=== PATIENT | female | born 1940 | race African-American/Black ===

== ENCOUNTER → 2019-05-12 14:21 | Outpatient (CLI) | payer MEDICARE, SELFPAY ==
--- NOTE | ~2019-05-12 | MR_ITS ---
EXAMINATION: MR cervical spine wo con EXAM DATE: 05/12/2019 15:09 INDICATION: Left hand numbness. Neck pain. TECHNIQUE: Multi-sequential, multiplanar MR images of the cervical spine were obtained without contra st. Axial T2, axial T2 MERGE sequence. Sagittal T1, T2, T2 fat saturation images also obtained. Th ere is no prior study for comparison. FINDINGS: There is moderate to severe disc disease from C3 through C6, moderate at C6-7. There is 2 mm anterolisthesis C7 on T1. The cervical central canal stenosis from C3 through C6, causing spinal c ord compression, with flattening of the cord at C4-5 more than C5-6, probably chronic given that ther e is no evidence of spinal cord edema. Recommend neurosurgical consult. There are no suspicious marro w signal abnormalities. Cervicomedullary junction is normal in appearance. Paraspinal soft tissue is unremarkable. Level by level evaluation: C2-C3: Disc does not extend beyond the endplate margin. Uncovertebral joint arthropathy: None. Facet joint arthropathy: Mild to moderate left, mild right. Neural foraminal stenosis: No stenosis. Central canal stenosis: No stenosis. C3-C4: There is a mild to moderate diffuse disc bulge, asymmetric to the right Uncovertebral joint arthropathy: Severe bilateral. Facet joint arthropathy: Moderate bilateral. Neural foraminal stenosis: Severe bilateral. Central canal stenosis: Mild to moderate . Central canal measures 6 mm in mid sagittal AP diameter . C4-C5: There is a moderate to large diffuse disc bulge. Uncovertebral joint arthropathy: Severe right, moderate to severe left. Facet joint arthropathy: Mild to moderate bilateral. Neural foraminal stenosis: Severe right, moderate to severe left. Central canal stenosis: Moderate to severe. Central canal measures 4 mm in mid sagittal AP diameter . C5-C6: There is a moderate diffuse disc bulge. Uncovertebral joint arthropathy: Severe right, moderate to severe left. Facet joint arthropathy: Moderate. Neural foraminal stenosis: Severe right, moderate to severe left. Central canal stenosis: Moderate. C6-C7: There is a mild diffuse disc bulge. Uncovertebral joint arthropathy: Moderate to severe bilateral. Facet joint arthropathy: Moderate bilateral. Neural foraminal stenosis: Severe left, moderate to severe right. Central canal stenosis: Mild. C7-T1: There is a minimal diffuse disc bulge. Uncovertebral joint arthropathy: Mild to moderate left, mild right. Facet joint arthropathy: Moderate bilateral. Neural foraminal stenosis: Moderate left, mild to moderate right. Central canal stenosis: No stenosis. IMPRESSION: 1. Significant mid cervical central canal, flattening without edema, chronic cord compression. Recom mend neurosurgical evaluation. 2. Multilevel severe neural foraminal stenosis. Reviewed, dictated and finalized at location A. IMPRESSION: 1. Significant mid cervical central canal, flattening without edema, chronic c ord compression. Recommend neurosurgical evaluation. 2. Multilevel severe neural foraminal stenosis.
== END ==
PROVIDERS: PCP Family Medicine; Visit Provider Psychiatry & Neurology Neurology
DX: R20.2 Paresthesia of skin (principal); M48.02 Spinal stenosis, cervical region
CPT/HCPCS: 72141

== ENCOUNTER 2019-12-31 13:12 | Outpatient (CLI) | payer MEDICARE, SELFPAY ==
--- NOTE | ~2019-12-31 | XR_ITS ---
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 The procedure including the risks, benefits, and alternatives was discussed with the pat ient. Risks discussed included bleeding and infection. The patient understood the risks and agreed to proceed. The skin overlying the left hip joint was prepped and draped in usual sterile fashion. An esthetic was administered with 1% lidocaine subcutaneously. A 22 G needle was advanced under fluoros copic guidance into the joint. Injection of 0.6 mL of Omnipaque 240 confirmed intra-articular positi on of the needle. Subsequently, injectate consisting of 7 mm a 5:2 mixture of 1% lidocaine: 10 mg/mL Kenalog for a total dosage of 20 mg Kenalog was instilled. Washout of contrast was seen confirming i ntra-articular administration. The needle was removed and the entry site was cleaned and dressed. Th ere were no immediate complications. Fluoroscopy exposure time was 0.1 minutes. The total number of i mages was 2. FINDINGS: Real-time fluoroscopy demonstrates the needle in the left hip joint. Patient's pain prior t o procedure:5/10. Patient's pain following the procedure: 0/10. Moderate left hip osteoarthritis. IMPRESSION: 1. Left hip joint injection of local anesthetic and steroid with decrease in the patient's presenting pain. Reviewed, dictated and finalized at location A. ORY WORKER IMPRESSION: 1. Left hip joint injection of local anesthetic and steroid with decrease in th e patient's presenting pain.
== END 2019-12-31 13:13 | disposition home or self-care (01) ==
PROVIDERS: PCP Family Medicine; Visit Provider Orthopaedic Surgery
DX: M16.12 Unilateral primary osteoarthritis, left hip (principal)
CPT/HCPCS: 20610; 77002; J3301; Q9966

== ENCOUNTER → 2020-02-25 15:16 | Outpatient (CLI) | payer MEDICARE, SELFPAY ==
--- NOTE | ~2020-02-25 | MM_ITS ---
EXAMINATION: MM screening [facility] BI w deniz HISTORY: Screening mammogram TECHNIQUE: Craniocaudal and mediolateral oblique 3-D tomosynthesis images were obtained and synthetic 2-D images were generated. CAD analysis was submitted and interpreted. COMPARISON: 12/15/2018, 11/20/2017, 11/10/2016 BREAST PARENCHYMAL COMPOSITION: There are scattered areas of fibroglandular density. FINDINGS: Again noted is a stable right breast mass with biopsy change. There is no evidence of suspi cious mass, calcification, or architectural distortion to suggest malignancy in either breast. There has been no suspicious interval change. IMPRESSION: 1. No mammographic evidence of malignancy. 2. Recommend routine screening mammography in one year. BI-RADS Category 2: Benign finding(s). Reviewed, dictated and finalized at location A. TTING CLERK
== END ==
PROVIDERS: PCP Family Medicine; Visit Provider Family Medicine
DX: Z12.31 Encounter for screening mammogram for malignant neoplasm of breast (principal)
CPT/HCPCS: 77063; 77067

== ENCOUNTER 2020-04-22 09:58 | Outpatient (CLI) | payer MEDICARE, SELFPAY ==
--- NOTE | ~2020-04-22 | XR_ITS ---
CORRECTED REPORT ORDER CHANGED [id number] [place] 04/23/2020 EXAMINATION: XR lg joint inject/asp w image DATE: 04/22/2020 11:00 INDICATION: Bilateral primary osteoarthritis of the left hip TECHNIQUE: A time-out was performed to verify the patient's name, date of , and procedure to be performed. The procedure including the risks, benefits, and alternatives was discussed with the patient. Risks discussed included bleeding and infection. The patient understood the risks and agreed to proceed. The skin overlying the left hip joint was prepped and draped in usual sterile fashion. Anesthetic was administered with 1% lidocaine subcutaneously. A 22 G needle was advanced under fluoroscopic guidance into the joint. Injection of 0.8 mL of Omnipaque 240 confirmed intra-articular position of the needle. Subsequently, injectate consisting of 7 mL of a 5:2 mixture of 1% lidocaine, 10 mg/mL Kenalog for a total dosage of 20 mg Kenalog was instilled. Washout of contrast was seen confirming intra-articular administration. The needle was removed and the entry site was cleaned and dressed. There were no immediate complications. Fluoroscopy exposure time was 0.1 minutes. The total number of images was 2. FINDINGS: Real-time fluoroscopy demonstrates the needle in the left hip joint. Patient's pain prior to procedure:5/10. Patient's pain following the procedure: 0/10. IMPRESSION: 1. Left hip injection of local anesthetic and steroid with decrease in the patient's presenting pain. Reviewed, dictated and finalized at location A. ITY WORKER MTDD IMPRESSION: 1. Left hip injection of local anesthetic and steroid with decrease in the dawson ent's presenting pain.
== END 2020-04-22 09:59 | disposition home or self-care (01) ==
PROVIDERS: PCP Family Medicine; Visit Provider Orthopaedic Surgery
DX: M16.12 Unilateral primary osteoarthritis, left hip (principal)
CPT/HCPCS: 20610; 77002; Q9966

== ENCOUNTER 2020-07-29 12:40 | Outpatient (CLI) | payer MEDICARE, SELFPAY ==
--- NOTE | ~2020-07-29 | XR_ITS ---
EXAMINATION: XR lg joint inject/asp w image DATE: 07/29/2020 13:26 INDICATION: Unilateral primary osteoarthritis, left hip. Left hip pain. TECHNIQUE: A time-out was performed to verify the patient's name, date of , and procedure to b e performed. The procedure including the risks, benefits, and alternatives was discussed with the pat ient. Risks discussed included bleeding and infection. The patient understood the risks and agreed to proceed. The skin overlying the left hip joint was prepped and draped in usual sterile fashion. An esthetic was administered with 1% lidocaine subcutaneously. A 22 G needle was advanced under fluoros copic guidance into the joint. Injection of 1 mL of Omnipaque 240 confirmed intra-articular position of the needle. Subsequently, injectate consisting of 5 mL 1% lidocaine and 2 mL 10 mg/mL Kenalog wa s instilled. The needle was removed and the entry site was cleaned and dressed. There were no immed iate complications. Fluoroscopy exposure time was 0.0 minutes. The total number of images was 2. FINDINGS: Real-time fluoroscopy demonstrates the needle in the left hip joint. Patient's pain prior t o procedure:5. Patient's pain following the procedure: /10. IMPRESSION: 1. Fluoroscopy guided left hip joint injection of local anesthetic and steroid. Reviewed, dictated and finalized at location A.
== END 2020-07-29 12:41 | disposition home or self-care (01) ==
PROVIDERS: PCP Family Medicine; Visit Provider Orthopaedic Surgery
DX: M16.12 Unilateral primary osteoarthritis, left hip (principal)
CPT/HCPCS: 20610; 77002; J3301; Q9966

== ENCOUNTER → 2021-04-15 14:34 | Outpatient (CLI) | payer MEDICARE, SELFPAY ==
--- NOTE | ~2021-04-15 | MM_ITS ---
EXAMINATION: MM screening [facility] BI w deniz HISTORY: Screening TECHNIQUE: Craniocaudal and mediolateral oblique 3-D tomosynthesis images were obtained and synthetic 2-D images were generated. CAD analysis was submitted and interpreted. COMPARISON: Comparison to multiple prior studies sequentially, with oldest reviewed study dated 10/16. BREAST PARENCHYMAL COMPOSITION: Breast composed of scattered areas of fibroglandular density. FINDINGS: Stable benign appearing right breast mass. There is no evidence of suspicious mass, calcifi cation, or architectural distortion to suggest malignancy in either breast. There has been no suspici ous interval change. IMPRESSION: 1. No mammographic evidence of malignancy. 2. Recommend routine screening mammography in one year. BI-RADS Category 2: Benign finding(s). Reviewed, dictated and finalized at location A. UARY OPERATIONS MANAGER
== END ==
PROVIDERS: PCP Family Medicine; Visit Provider Obstetrics & Gynecology
DX: Z12.31 Encounter for screening mammogram for malignant neoplasm of breast (principal)
CPT/HCPCS: 77063; 77067

== ENCOUNTER → 2021-09-09 13:19 | Outpatient (CLI) | payer MEDICARE, SELFPAY ==
--- NOTE | ~2021-09-09 | DEXA_ITS ---
Bone Density Report Name: NAYELI PATTERSON Age: 81 Sex: Female Ethnicity: Black Date of : 1940 Indication: postmenopausal; screening for osteoporosis; parental hip fracture; height loss; secondary osteoporosis; Referring Provider: GALILEO FRAUSTO Study: Bone densitometry was performed. Exam Date: September 09, 2021 Accession number: [id number] Bone Density: Region BMD T-score Z-score Classification AP Spine (L1, L2, L4) 1.096 0.6 2.5 Normal Femoral Neck (Right) 0.720 -1.2 0.1 Osteopenia Total Hip (Right) 0.981 0.3 1.2 Normal World Health Organization criteria for BMD impression classify patients as: Normal (T-score at or above -1.0), Osteopenia (T-score between -1.0 and -2.5), or Osteoporosis (T-score at or below -2.5). 10-year Fracture Risk(1): Major Osteoporotic Fracture 8.5% Hip Fracture 4.0% Reported Risk Factors: [place] ([place]), Neck BMD=0.720, BMI=38.4, parental fracture, secondary osteoporosis (1) FRAX(R) Version 3.08. Fracture probability calculated for an untreated patient. Fracture probability may be lower if the patient has received treatment. Previous Exams: Region Exam Age BMD T-score BMD Change BMD Change Date g/cm2 vs Baseline vs Previous AP Spine(L1, L2, L4) 09/09/2021 81 1.096 0.6 0.017 -0.017 04/12/2017 77 1.113 0.7 0.034* 0.078* 04/08/2015 75 1.035 0.0 -0.044* -0.044* 05/18/2005 65 1.079 0.4 Total Hip(Right) 09/09/2021 81 0.981 0.3 0.080 -0.003 04/12/2017 77 0.984 0.3 0.083 -0.031* 04/08/2015 75 1.016 0.6 0.115 0.074* 05/18/2005 65 0.942 0.0 0.041 0.041 05/18/2005 65 0.901 -0.3 *Denotes significance at 95% confidence level, LSC for AP Spine = 0.022 g/cm2, LSC for Total Hip = 0.027 g/cm2 Clinical Information Provided by Patient: Parent has had a hip fracture Has secondary osteoporosis Has used the following medications: Vitamin D, Calcium Patient maximum height was 63 Menopause Age: 52 Drinks caffeinated beverages Onset of menses at age 14 Number of children 1 Impression: The patient has low bone mass, based on the Right Femoral Neck T-score. The patient has an estimated ten-year risk of hip fracture of 4% and an estimated ten-year risk of major fracture of 8.5%, based on the WHO FRAX algorithm. The patient has risk factors, including: parental hip fracture. No significant bone loss was observed. Discussion: BONE
== END ==
PROVIDERS: PCP Family Medicine; Visit Provider Obstetrics & Gynecology
DX: Z13.820 Encounter for screening for osteoporosis (principal); M85.851 Other specified disorders of bone density and structure, right thigh
CPT/HCPCS: 77080

== ENCOUNTER → 2022-04-19 14:07 | Outpatient (CLI) | payer MEDICARE, SELFPAY ==
--- NOTE | ~2022-04-19 | MM_ITS ---
EXAMINATION: MM screening [facility] BI w deniz HISTORY: Screening mammogram TECHNIQUE: Craniocaudal and mediolateral oblique 3-D tomosynthesis images were obtained and synthetic 2-D images were generated. CAD analysis was submitted and interpreted. COMPARISON: April 15, 2021, February 25, 2020, December 23, 2018 bilateral screening mammogram exam inations BREAST PARENCHYMAL COMPOSITION: There are scattered areas of fibroglandular density. FINDINGS: Stable asymmetric circumscribed opacity in the lower central right breast since 12/23/2018. There is an adjacent biopsy marker; history of benign post biopsy in 2001. There is no evidence of suspicious mass, calcification, or architectural distortion to suggest malign eh in either breast. There has been no suspicious interval change. IMPRESSION: 1. No mammographic evidence of malignancy. 2. Recommend routine screening mammography in one year. BI-RADS Category 2: Benign finding(s). Reviewed, dictated and finalized at location A. OLOGIST
== END ==
PROVIDERS: PCP Family Medicine; Visit Provider Family Medicine
DX: Z12.31 Encounter for screening mammogram for malignant neoplasm of breast (principal)
CPT/HCPCS: 77063; 77067

== ENCOUNTER 2022-05-20 10:40 | Emergency (ER) | payer MEDICARE, SELFPAY ==
--- NOTE | ~2022-05-20 | CT_ITS ---
EXAMINATION: CT brain wo con INDICATION: Head injury COMPARISON: 06/23/2017 TECHNIQUE: Standard unenhanced head CT. The dose-length product (DLP) was 605.33 mGy-cm. The mA was a djusted according to patient size. Iterative reconstruction technique was employed. FINDINGS: There is no acute intraparenchymal hemorrhage. No evidence of mass lesion. No evidence of a cute infarction. There is mild periventricular and subcortical hypodensity probably related to small vessel ischemic disease. There is mild prominence of the sulci and ventricles related to cerebral atr ophy. Intracranial calcified cerebral atherosclerosis is noted. There are no extra-axial collections. There is no mass effect or midline shift. The orbits and soft tissues are unremarkable. The visualiz ed sinuses and mastoid air cells are well aerated. IMPRESSION: 1. No acute intracranial abnormality. 2. Age related findings. Reviewed, dictated and finalized at location A.
--- NOTE | ~2022-05-20 | CT_ITS ---
EXAMINATION: CT facial & cervical spine wo DATE: 05/20/2022 11:47 INDICATION: Head injury TECHNIQUE: Computed tomography (CT) of the maxillofacial region and cervical spine was performed with out intravenous contrast. The dose-length product (DLP) was 355.40 mGy-cm. Automated exposure control and iterative reconstruction technique were employed. COMPARISON: 06/23/2017 FINDINGS: MAXILLOFACIAL CT: There appears to be a nondisplaced transverse fracture in the styloid process of the right temporal b one. No additional fracture is identified. The orbits are normal. Changes in the globes are likely fr om ocular lens surgery. The paranasal sinuses are clear. CERVICAL SPINE CT: There are 2 mm of retrolisthesis of C3 on C4. The vertebral body heights are normal. There is severe loss of intervertebral disc space height throughout the cervical spine. The odontoid process is intac t. Small degenerative osteophytes project from the anterior endplates of multiple vertebral bodies. T here is multilevel moderate facet and uncovertebral joint osteoarthritis. IMPRESSION: 1. Apparent nondisplaced transverse fracture in the styloid process of the right temporal bone. 2. Moderate to severe cervical spondylosis without acute findings. Reviewed, dictated and finalized at location A. IMPRESSION: 1. Apparent nondisplaced transverse fracture in the styloid process of the righ t temporal bone. 2. Moderate to severe cervical spondylosis without acute findings.
[2022-05-20 10:43] VITALS: BP 144/80; PULSE 91; RESP 14; TEMP 36.4; O2SAT 99
--- NOTE | 2022-05-20 11:16 | ED.FALL ---
HPI - Fall General Chief Complaint: Fall Stated Complaint: fall 1 week ago with c/o facial and jaw pain Time Seen by Provider: 05/20/22 10:57 History of Present Illness HPI Narrative: 82-year-old female history of hypertension, diabetes, hypothyroidism presents to the emergency room for evaluation of injury sustained in a fall. Patient states on Sunday she was at a restaurant and was engaged in a heated conversation with an employee. Patient states that due to her increasing anger of the situation, she became weak and fell. Denies syncope. States that when she fell she struck her head on a counter. Has been experiencing pain to her forehead above her right eye and to the right side of her face. Has been taking ibuprofen with no relief of symptoms. Denies any loss of consciousness or altered mental status. Related Data Home Medications Medication Instructions Recorded Confirmed multivitamin (Daily Multi-Vitamin 1 tablet PO DAILY 01/15/19 05/12/22 tablet) omega 2-fln-eqe-fish oil 1,000 mg 1 cap PO DAILY 02/13/19 05/12/22 (120 mg-180 mg) capsule (Fish Oil) bimatoprost 0.01 % eye drops 1 drp ophthalmic (eye) DAILY 12/24/19 05/12/22 (Lumigan) ascorbic acid (vitamin C) 500 mg mg PO 06/23/21 05/12/22 capsule Allergies Allergy/AdvReac Type Severity Reaction Status Date / Time amoxicillin Allergy Unknown VISUAL Verified 05/20/22 10:42 PROBLEMS Mushroom Allergy Mild Nausea and Uncoded 05/20/22 10:42 Vomiting Review of Systems Review of Systems: CONSTITUTIONAL: Denies fever, chills, or sweats. EYES: Denies visual changes, redness, or discharge. ENT: Denies rhinorrhea, congestion, sore throat, or otalgia. CARDIOVASCULAR: Denies chest pain, palpitations, or edema. RESPIRATORY: Denies cough or dyspnea. GASTROINTESTINAL: Denies abdominal pain, nausea, vomiting, or diarrhea. GENITOURINARY: Denies dysuria or hematuria. SKIN: Denies rash or itching. MUSCULOSKELETAL: Denies back pain, joint pain, or myalgia. NEUROLOGIC: Denies headache, numbness, dizziness, or weakness. PSYCHIATRIC: Denies anxiety or depression. [facility] Past Medical History Medical History Abnormal finding on ultrasound Benign essential HTN BMI 38.0-38.9,adult Essential hypertension Glaucoma High cholesterol Hypertension Morbid (severe) obesity due to excess calories Nightmares Nocturnal leg movements Obesity SINDHU (obstructive sleep apnea) SINDHU (obstructive sleep apnea) Osteoarthritis of left hip Screening for cervical cancer Sleep disturbance Thyroid disease Vaginal atrophy Surgical History Surgical History H/O knee surgery left tka 2010, Dr. Gallegos Right tka, 2007, Dr. Gallegos History of cholecystectomy History of hip surgery History of tubal ligation S/P dilation and curettage S/P partial thyroidectomy Family History Family History Sibling Hypertension Family history of diabetes mellitus in first degree relative Diabetes mellitus Other Cerebrovascular accident Social History Social History Social History: Single Smoking status: Never smoker Second hand tobacco smoke exposure: No Alcohol intake: never Substance use: never Substance use type: does not use Lack of Transportation: No Lack of Food: Never True Current Housing: I Have Housing Concerned About Future Housing: No Difficulty Paying Gas/Electric Bills: No Difficulty Paying for Meds: No Currently Unemployed: YES Difficulty w/ Childcare or Family Care: No Living arrangements: alone Occupation/Education: retired Gender identity (if verbalized by the patient): Female Sexual Orientation (if Verbalized by the Patient): Straight or Heterosexual Spiritual care concerns: No Agree to blood products: Yes Exam N
[2022-05-20 12:06] VITALS: BP 154/71; PULSE 68
[2022-05-20 12:08] VITALS: BP 149/86; PULSE 72
[2022-05-20 12:12] VITALS: BP 131/81; PULSE 80
[2022-05-20 12:38] VITALS: BP 150/80; PULSE 73; RESP 16; O2SAT 96
== END 2022-05-20 12:39 | disposition home or self-care (01) ==
PROVIDERS: Emergency Provider Nurse Practitioner Family; PCP Family Medicine
DX: S02.19XA Other fracture of base of skull, initial encounter for closed fracture (principal); W19.XXXA Unspecified fall, initial encounter; I10 Essential (primary) hypertension; E11.9 Type 2 diabetes mellitus without complications; E03.9 Hypothyroidism, unspecified
CPT/HCPCS: 70450; 70486; 72125; 99284

== ENCOUNTER 2022-09-04 16:09 | Outpatient (CLI) | payer MEDICARE, SELFPAY ==
--- NOTE | ~2022-09-04 | XR_ITS ---
EXAMINATION: XR facial bones min 3V DATE: 09/04/2022 16:35 INDICATION: Unspecified fracture of skull, initial encounter. TECHNIQUE: 5 views of the facial bones were obtained. COMPARISON: Maxillofacial CT 05/20/2022 FINDINGS: There is mild leftward deviation of the nasal septum. There is prominent ossification of th e stylohyoid ligaments. There are surgical clips in right neck. IMPRESSION: 1. No fracture identified. 2. Prominent ossification of the stylohyoid ligaments, which may be seen with [place]un[place] syndrome. Reviewed, dictated and finalized at location E. IMPRESSION: 1. No fracture identified. 2. Prominent ossification of the stylohyoid ligaments, which may be seen with E agle syndrome.
== END 2022-09-04 16:10 | disposition home or self-care (01) ==
LOC: ANHIMG 16:12
PROVIDERS: PCP Family Medicine; Visit Provider Physician Assistant
DX: S02.91XA Unspecified fracture of skull, initial encounter for closed fracture (principal); X58.XXXA Exposure to other specified factors, initial encounter
CPT/HCPCS: 70150

== ENCOUNTER 2023-06-18 14:11 | Emergency (ER) | payer MEDICARE, SELFPAY ==
--- NOTE | ~2023-06-18 | CT_ITS ---
EXAMINATION: CT brain wo con DATE: 06/18/2023 15:47 INDICATION: numbness . TECHNIQUE: Computed tomography (CT) of the head was performed without intravenous contrast. The mA wa s adjusted according to patient size. Iterative reconstruction technique was employed. The dose-lengt h product was 529.67 mGy-cm. COMPARISON: 05/20/2022, report only. FINDINGS: No acute intracranial hemorrhage or extra-axial fluid collection. No hydrocephalus, mass, or herniation. No acute ischemic infarct. Unremarkable dural venous sinus attenuation. No acute osseous abnormality. The aerated spaces are clear. Mild atrophy and chronic white matter change. Atherosclerotic intracranial calcification. Bilateral l ens replacements. Bilateral basal ganglia calcification. IMPRESSION: No acute intracranial process. Reviewed, dictated and finalized at location K.
[2023-06-18 14:27] VITALS: BP 152/87; PULSE 76; RESP 16; TEMP 36.3; O2SAT 97
--- NOTE | 2023-06-18 15:23 | ED.GENADULT ---
HPI - General Adult General Chief complaint: Neuro Symptoms/Deficit Stated complaint: numbness in L hand Time Seen by Provider: 06/18/23 15:23 Focused HPI: Ping Espana is a 83 y/o female with reports of having numbness to her left hand that started Sunday and it hasn't improved since. She reports that since she has also felt increased fatigued. She denies any recent falls or injuries. She states that she fell about a year ago and had a skull fracture. She reports also on Sunday she felt like she had to drag her left leg a little bit, but that has since improved. GENERAL: Well-appearing, well-nourished, and in no acute distress. HEAD: Normocephalic, atraumatic. CHEST: Clear to auscultation. ?No respiratory distress. HEART: Regular rate and rhythm.? NEURO: ?Alert and oriented x3. Patient screened in triage and initial orders placed.? ?Additional care and disposition to be based upon?diagnostic testing and treatment. Related Data Home Medications Medication Instructions Recorded Confirmed multivitamin (Daily Multi-Vitamin 1 tablet PO DAILY 01/15/19 02/27/23 tablet) omega 2-srf-han-fish oil 1,000 mg 1 cap PO DAILY 02/13/19 02/27/23 (120 mg-180 mg) capsule (Fish Oil) bimatoprost 0.01 % eye drops 1 drp ophthalmic (eye) DAILY 12/24/19 02/27/23 (Lumigan) ascorbic acid (vitamin C) 500 mg mg PO 06/23/21 02/27/23 capsule mecobalamin (vitamin B12) 500 mcg mcg PO 08/28/22 02/27/23 chewable tablet Allergies Allergy/AdvReac Type Severity Reaction Status Date / Time amoxicillin Allergy Unknown VISUAL Verified 06/18/23 14:12 PROBLEMS Mushroom Allergy Mild Nausea and Uncoded 06/18/23 14:12 Vomiting PMFSH Past Medical History Medical History (Updated 06/19/23 @ 19:46 by Johanne Hodgson APRN) Abnormal finding on ultrasound Benign essential HTN BMI 38.0-38.9,adult Chronic otitis externa of both ears Clear vaginal discharge Coughing blood Essential hypertension Glaucoma Hemoptysis High cholesterol [place] (hard of hearing) Hypertension Morbid (severe) obesity due to excess calories Nightmares Nocturnal leg movements Obesity SINDHU (obstructive sleep apnea) SINDHU (obstructive sleep apnea) Osteoarthritis of left hip Recurrent epistaxis Screening for cervical cancer Screening for diabetes mellitus (DM) Skull fracture Sleep disturbance Thyroid disease Vaginal atrophy Surgical History Surgical History H/O knee surgery left tka 2010, Dr. Gallegos Right tka, 2007, Dr. Gallegos History of cholecystectomy History of hip surgery History of tubal ligation S/P dilation and curettage S/P partial thyroidectomy Family History Family History Sibling Hypertension Family history of diabetes mellitus in first degree relative Diabetes mellitus Other Cerebrovascular accident Social History Social History (Updated 02/27/23 @ 13:09 by Mehreen Desouza) Social History: Single Smoking status: Never smoker Second hand tobacco smoke exposure: No Alcohol intake: never Substance use: never Substance use type: does not use Do You Feel Safe in your Home?: Yes Lack of Transportation: No Lack of Food: Never True Current Housing: I Have Housing Concerned About Future Housing: No Difficulty Paying Gas/Electric Bills: No Difficulty Paying for Meds: No Currently Unemployed: YES Education: Master's Degree or Higher Difficulty w/ Childcare or Family Care: No Living arrangements: alone Occupation/Education: retired Gender identity (if verbalized by the patient): Female Sexual Orientation (if Verbalized by the Patient): Straight or Heterosexual Spiritual care concerns: No Agree to blood products: Yes Course Vital Signs Vital signs: Vital Signs Temperature 36.3 C L 06/18/23 14:27 Pulse Rate 76 06/18/23 14:27 Respiratory Rate 16 06/18/23 14:27 Blood Pressure 15
[2023-06-18 17:38] LABS: Basophils Percent Auto 0.3 % (0.2-1.2); Eosinophils Absolute Auto 0.1 K/mm3 (0-0.3); Eosinophils Percent Auto 1.9 % (0-4.4); Hematocrit 38.8 % (37.0-47.0); Hemoglobin 12.5 g/dL (12.0-15.0); Immature Granulocyte Absolute 0.04 K/mm3 (0.00-0.031); Immature Granulocyte Percent A 0.6 % (0-0.5); Lymphocytes Absolute Auto 1.85 K/mm3 (0.9-3.2); Lymphocytes Percent Auto 29.4 % (18.3-44.2); Mean Corpuscular HGB Conc 32.2 g/dl (32-36); Mean Corpuscular Hemoglobin 29.8 pg (26-34); Mean Corpuscular Volume 92.6 fl (80-100); Mean Platelet Volume 10.1 fl (7.4-10.4); Monocytes Absolute Auto 0.5 K/mm3 (0.1-0.6); Monocytes Percent Auto 8.1 % (2.6-8.5); Neutrophils Absolute Auto 3.8 K/mm3 (1.3-6.7); Neutrophils Percent Auto 59.7 % (45.5-73.1); Platelet Count Result 215 k/mm3 (150-375); Red Blood Count 4.19 M/mm3 (4.2-5.4); Red Cell Distribution Width 14.1 % (11.5-14.5); White Blood Count 6.3 K/mm3 (4.5-10.0)
[2023-06-18 17:49] LABS: Alanine Aminotransferase 22 U/L (6-35); Albumin Level 4.7 g/dL (3.5-5.1); Alkaline Phosphatase 94 U/L (38-126); Anion Gap 7 mmol/L (4-12); Aspartate Amino Transferase 27 U/L (14-36); Bilirubin,Total 0.5 mg/dL (0.2-1.3); Blood Urea Nitrogen 21 mg/dL (7-17); Calcium 10.6 mg/dL (8.4-10.2); Carbon Dioxide 26 mmol/L (22-30); Chloride 106 mmol/L (98-107); Estimated CRCL calculation 46 ml/min; Estimated Glomerular Filt Rate > 60; Glucose 94 mg/dL (65-110); Potassium 3.7 mmol/L (3.4-5.0); Sodium 139 mmol/L (137-145)
== END 2023-06-18 17:30 | disposition left against medical advice (07) ==
LOC: ANHED 18:39
PROVIDERS: Emergency Provider Nurse Practitioner Family; PCP Family Medicine
DX: R20.2 Paresthesia of skin (principal); I10 Essential (primary) hypertension; G47.30 Sleep apnea, unspecified
CPT/HCPCS: 36415; 70450; 80053; 85025; 99284

== ENCOUNTER 2023-10-31 15:43 | Outpatient (CLI) | payer MEDICARE, SELFPAY ==
--- NOTE | ~2023-10-31 | MM_ITS ---
EXAMINATION: MM screening trever BI w deniz HISTORY: Screening TECHNIQUE: Craniocaudal and mediolateral oblique 3-D tomosynthesis images were obtained and synthetic 2-D images were generated. CAD analysis was submitted and interpreted. COMPARISON: Comparison to multiple prior studies sequentially, with oldest reviewed study dated 11/10. BREAST PARENCHYMAL COMPOSITION: Not dense: There are scattered areas of fibroglandular density. FINDINGS: Low-density masses in the lower central aspect of the right breast is not significantly maximilian nged from prior studies. There is a new cluster of pleomorphic calcifications in the upper outer quad rant of the right breast. There are also a new calcifications in the upper outer quadrant of the left breast, middle third. IMPRESSION: 1. New clusters of indeterminate calcifications bilaterally. 2. Magnification views are recommended. BI-RADS Category 0: Incomplete: Needs additional imaging evaluation. Reviewed, dictated and finalized at location B.
== END 2023-10-31 15:44 | disposition home or self-care (01) ==
LOC: MICIMG 15:44
PROVIDERS: PCP Family Medicine; Visit Provider Obstetrics & Gynecology
DX: Z12.31 Encounter for screening mammogram for malignant neoplasm of breast (principal); R92.8 Other abnormal and inconclusive findings on diagnostic imaging of breast
CPT/HCPCS: 77063; 77067

== ENCOUNTER 2023-11-21 09:16 | Outpatient (CLI) | payer MEDICARE, SELFPAY ==
--- NOTE | ~2023-11-21 | MMUS_ITS ---
EXAMINATION: MM diagnostic mammo BI, US breast RT limited HISTORY: Follow-up bilateral breast calcifications TECHNIQUE: Additional 3-D tomosynthesis images of the breasts were performed and synthetic 2-D images were generated. CAD analysis was submitted and interpreted. High resolution Limited right breast ult rasound was performed. COMPARISON: Comparison to multiple prior studies sequentially, with oldest reviewed study dated 11/20. BREAST PARENCHYMAL COMPOSITION: Not dense: There are scattered areas of fibroglandular density. FINDINGS: MAMMOGRAPHIC FINDINGS: There is a focal mass in the lower central aspect of the right breast, middle third with adjacent tis mary ellen marker. The mass contains areas of central lucency, likely fat. There are clustered indeterminate calcifications in the upper outer quadrant of the right breast, posterior third with some areas of b ranching calcifications. There is a cluster of indeterminate calcifications developing in the upper o uter quadrant of the left breast, posterior third. ULTRASOUND: Limited right breast ultrasound: In the area of mammographic abnormality there is an oval hyperechoic 2.3 cm mass with posterior shadowing. This likely represents an area of fat necrosis from prior biop sy. Short-term follow-up ultrasound recommended. IMPRESSION: 1. Clustered indeterminate bilateral breast calcifications in the upper outer quadrant of both breast s. Bilateral stereotactic biopsy recommended. 2. Probable benign area of fat necrosis in the 7:00 position of the right breast, 4 cm from the nippl e. Six-month follow-up ultrasound recommended. BI-RADS category 4, suspicious findings. Reviewed, dictated and finalized at location B. IMPRESSION: 1. Clustered indeterminate bilateral breast calcifications in the upper outer q uadrant of both breasts. Bilateral stereotactic biopsy recommended. 2. Probable benign area of fat necrosis in the 7:00 position of the right breas t, 4 cm from the nipple. Six-month follow-up ultrasound recommended. BI-RADS category 4, suspicious findings.
== END 2023-11-21 09:17 | disposition home or self-care (01) ==
LOC: MICIMG 09:17
PROVIDERS: PCP Family Medicine; Visit Provider Obstetrics & Gynecology
DX: R92.8 Other abnormal and inconclusive findings on diagnostic imaging of breast (principal)
CPT/HCPCS: 76642; 77066

== ENCOUNTER 2024-01-02 14:58 | Outpatient (CLI) | payer MEDICARE, SELFPAY ==
--- NOTE | ~2024-01-02 | XR_ITS ---
HISTORY: M25.519 - Pain in unspecified shoulder COMPARISON: None TECHNIQUE: 4 views of the left shoulder were performed. FINDINGS: No acute fracture. The glenohumeral joint space is maintained. Multiple osteophytes identified within the acromioclavicular joint. The visualized portion of the adjacent left lung is clear. The humeral head is well seated within the glenoid fossa. 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 Reviewed, dictated and finalized at location A. 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
--- NOTE | ~2024-01-02 | XR_ITS ---
HISTORY: M25.519 - Pain in unspecified shoulder COMPARISON: None TECHNIQUE: 4 views of the right shoulder were performed FINDINGS: No acute fracture. Degenerative disease is present, with osteophyte formation within the acromioclavicular joint, most p rominent within the acromion. Joint space narrowing is also detected within the glenohumeral joint space. The glenohumeral and acromioclavicular joint space are otherwise maintained The visualized portion of the adjacent right lung is clear. The humeral head is well seated within the glenoid fossa. IMPRESSION: Degenerative disease without acute fracture or anterior dislocation. Reviewed, dictated and finalized at location A. SIFIER
== END 2024-01-02 14:59 | disposition home or self-care (01) ==
PROVIDERS: PCP Family Medicine; Visit Provider Student in an Organized Health Care Education/Training Program
DX: M19.012 Primary osteoarthritis, left shoulder (principal); M19.021 Primary osteoarthritis, right elbow; M25.519 Pain in unspecified shoulder
CPT/HCPCS: 73030

== ENCOUNTER 2024-01-03 09:16 | Outpatient (CLI) | payer MEDICARE, SELFPAY ==
--- NOTE | ~2024-01-03 | MM_ITS ---
MM stereotactic bx LT, MM stereotactic specimen LT EXAMINATION: MM stereotactic bx LT, MM stereotactic specimen LT DATE: Josesito Mckay M.D. INDICATION: Abnormal calcifications in the left breast. Stereotactic core biopsy is requested evalua te for malignancy.] BREAST PARENCHYMAL COMPOSITION: TECHNIQUE AND FINDINGS: The risks and potential benefits of the procedure were discussed with the patient and written informe d consent was obtained. The patient was placed in the prone position clustered at the table with the left breast in lateral medial compression, and the area of interest was localized and targeted utili zing digital imaging with stereotaxis. After sterile preparation of the skin, 1% lidocaine was utilized for local anesthesia at the skin pun cture site and 1% lidocaine with epinephrine was utilized for deeper local anesthesia/is about the bi opsy site. A 9G Eviva vacuum assisted biopsy needle was advanced to the level of the calcification o f interest from a lateral approach utilizing stereotactic guidance and a total of 6 tissue core biops ies were obtained. A specimen radiograph demonstrates that the calcifications of interest are included within the tissue cores. A tissue marker clip was then placed at the biopsy site. The needle was removed and hemosta sis was achieved. The patient tolerated the procedure well and there is no evidence of significant i mmediate complication. The patient was given verbal as well as written postprocedural instructions p rior to discharge from the department. Tissue cores were submitted to surgical pathology for histolo gic analysis. A 2-view left unilateral digital mammogram was obtained post procedure and this demonstrates that the tissue marker clip is in expected position.] IMPRESSION: 1. Successful stereotactic biopsy of calcifications in the upper outer quadrant of the left breast w ith post procedure mammogram for marker placement. Please refer to pathology report for histologic a nalysis. Reviewed, dictated and finalized at location B. ASS OPERATOR IMPRESSION: 1. Successful stereotactic biopsy of calcifications in the upper outer quadran t of the left breast with post procedure mammogram for marker placement. Pleas e refer to pathology report for histologic analysis. IMPRESSION: 1. Successful stereotactic biopsy of calcifications in the upper outer quadran t of the left breast with post procedure mammogram for marker placement. Tucker eckert refer to pathology report for histologic analysis.
--- NOTE | ~2024-01-03 | MM_ITS ---
MM stereotactic specimen RT, MM post biopsy invasive BI, MM stereotactic bx RT EXAMINATION: MM stereotactic specimen RT, MM post biopsy invasive BI, MM stereotactic bx RT DATE: Josesito Mckay M.D. INDICATION: Abnormal calcifications in the right breast. Stereotactic core biopsy is requested evalu ate for malignancy.] BREAST PARENCHYMAL COMPOSITION: Not dense: There are scattered areas of fibroglandular density. TECHNIQUE AND FINDINGS: The risks and potential benefits of the procedure were discussed with the patient and written informe d consent was obtained. The patient was placed in the prone position clustered at the table with the right breast in lateral compression, and the area of interest was localized and targeted utilizing d igital imaging with stereotaxis. After sterile preparation of the skin, 1% lidocaine was utilized for local anesthesia at the skin pun cture site and 1% lidocaine with epinephrine was utilized for deeper local anesthesia/is about the bi opsy site. A 9G Eviva vacuum assisted biopsy needle was advanced to the level of the calcification o f interest from a lateral approach utilizing stereotactic guidance and a total of 6 tissue core biops ies were obtained. A specimen radiograph demonstrates that the calcifications of interest are included within the tissue cores. A tissue marker clip was then placed at the biopsy site. The needle was removed and hemosta sis was achieved. The patient tolerated the procedure well and there is no evidence of significant i mmediate complication. The patient was given verbal as well as written postprocedural instructions p rior to discharge from the department. Tissue cores were submitted to surgical pathology for histolo gic analysis. A 2-view right unilateral digital mammogram was obtained post procedure and this demonstrates that th e tissue marker clip is in expected position.] IMPRESSION: 1. Successful stereotactic biopsy of calcifications in the upper outer quadrant of the right breast with post procedure mammogram for marker placement. Please refer to pathology report for histologic analysis. Reviewed, dictated and finalized at location B. 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 Successful stereotactic biopsy of calcifications in the upper outer quadran t of the right breast with post procedure mammogram for marker placement. Plea se refer to pathology report for histologic analysis. IMPRESSION: 1. Successful stereotactic biopsy of calcifications in the upper outer quadran t of the right breast with post procedure mammogram for marker placement. Plea se refer to pathology report for histologic analysis.
== END 2024-01-03 09:17 | disposition home or self-care (01) ==
PROVIDERS: PCP Family Medicine; Visit Provider Surgery
DX: C50.411 Malignant neoplasm of upper-outer quadrant of right female breast (principal); C50.412 Malignant neoplasm of upper-outer quadrant of left female breast; R92.0 Mammographic microcalcification found on diagnostic imaging of breast
CPT/HCPCS: 19081; 88305; 88342; A4648

== ENCOUNTER 2024-03-24 08:45 | Outpatient (CLI) | payer MEDICARE, SELFPAY ==
--- NOTE | ~2024-03-24 | MM_ITS ---
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 TECHNIQUE: The procedure for a mammographic-guided Magseed localization was discussed with the patien evonne. Risks discussed included bleeding, infection and nontargeted localization. The patient verbalized understanding and agreed to proceed. The time out was performed to verify the patient's name, date of , and laterality of the procedu res. The skin overlying the left breast was prepared in usual sterile fashion. Utilizing an alphanumeric g rid technique for localization, the magseed introducer was advanced into the left breast, targeting t he RIBBON clip. Confirmation of Magseed position was achieved with orthogonal view and subsequent med iolateral and craniocaudal mammogram. The patient tolerated procedure without immediate complication. A sterile dressing was applied Attention was then turned to the right side. The skin overlying the right breast was prepared in usual fashion. Utilizing an alphanumeric grid chelle hnique for localization, the needle was advanced into the right breast, targeting the pre-existing AN CHOR tissue marker. Confirmation of Magseed position was achieved with orthogonal view and subsequent mediolateral and craniocaudal mammogram. The patient tolerated procedure without immediate complicat ion. A sterile dressing was applied. Of note, two separate types of tissue markers are identified within the right breast. The first is an ANCHOR tissue marker, located immediately adjacent to a 19 mm focus of increased dens ity, presumed to be a hematoma from prior biopsy. The second is a BUTTERFLY tissue marker, located in the far posterior, upper outer, right breast, krupa roximately 5 to 6 mm remote from a cluster of microcalcifications, and within a 12 mm reniform shaped focus of increased density, (mistakenly) presumed to be an intramammary lymph node versus a small fi broadenoma. The ANCHOR tissue marker was localized, rather than the BUTTERFLY tissue marker (biopsy-proven atypic al ductal hyperplasia and DCIS) for which lumpectomy is planned. Given this finding, wire localization of the cluster of microcalcifications remote from the BUTTERFLY marker is planned the morning of patient's surgery. BREAST PARENCHYMAL COMPOSITION: Not dense: The breasts demonstrate a scattered fibroglandular pattern . IMPRESSION: Technically successful ultrasound-guided left breast Magseed localization. Post procedure mammogram for marker placement. Failed right breast magseed localization, for which wire localization of the cluster of microcalcific ations remote from the BUTTERFLY marker is planned the morning of patient's surgery. These findings and recommendations were discussed with Dr. Aj at 1730 on 03/26/2024. Reviewed, dictated and finalized at location A. 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 Post procedure mammogram for marker placement. Failed right breast magseed localization, for which wire localization of the cl uster of microcalcifications remote from the BUTTERFLY marker is planned the mo rning of patient's surgery. These findings and recommendations were discussed with Dr. Aj at 1730 on .
== END 2024-03-24 08:46 | disposition home or self-care (01) ==
PROVIDERS: PCP Family Medicine; Visit Provider Surgery
DX: D05.10 Intraductal carcinoma in situ of unspecified breast (principal); N60.92 Unspecified benign mammary dysplasia of left breast
CPT/HCPCS: 19281; A4648

== ENCOUNTER 2024-03-25 11:25 | Outpatient (CLI) | payer MEDICARE, SELFPAY ==
--- NOTE | 2024-03-25 11:50 | ECG_ITS ---
Test Date: 2024-03-25 12:06:07 Measurements Intervals Byron Rate: 64 P: 45 MI: 158 QRS: -6 QRSD: 90 T: 58 QT: 372 QTc: 385 Interpretive Statements SINUS RHYTHM BASELINE ARTIFACT LIMITS INTERPRETATION No previous ECG available for comparison Electronically Signed On 03-25-2024 16:30:48 CARE MANAGEMENT ASSISTANT by Enrike Navarrete M.D.
--- OUTSIDE RECORDS SUMMARY | 2024-03-25 12:44 | XMS_ITS | CONTINUITY OF CARE DOCUMENT ---
Author Name soham jackybarb Address Unknown Organization [facility] Address [address] [facility] [address] [place] [address] Phone [phone] Care Team Providers Care Diaper Folder Name Role Phone Minh LINARES, Sony Unavailable SUSY DAVALOS Unavailable [phone] JOAN LINARES, GIANFRANCO Unavailable PROBLEMS Condition Status Date Provider Notes OBESITY active Sony Wilkinson MD [id number] DR SULLIVAN active 8 Sony Wilkinson MD HTN-09/04 ECHO NL EF 60 active ? Troy Larsen RN CVA active Sony Wilkinson MD ENCOUNTERS Date Type Provider Location Encounter Diagnosis - In-person encounter Office Visit Sony Wilkinson MD [place] [facility] - In-person encounter Office Visit Sony Wilkinson MD [place] [facility] HYPERCHOLESTEROLEM IA0PER DR SULLIVAN - In-person encounter Office Visit Sony Wilkinson MD [place] [facility] - In-person encounter Office Visit Sony Wilkinson MD [place] [facility] CVAHTN-09/04 ECHO NL EF 60HYPERCHOLESTEROL [id number] DR SULLIVANOBESITY VITAL SIGNS Date Observation Value Provider blood pressure, diastolic 72 mm[Hg] Rhoda seph [place] blood pressure, systolic 126 mm[Hg] Durga eph [facility] pulse rate 71 /min [facility] oxygen saturation, oximetry 99 % [facility] respiratory rate E&M 16 /min [facility] weight E&M 189 [lb_av] [facility] blood pressure, diastolic, left arm 78 mm [Hg] [facility] blood pressure, systolic, left arm 118 mm [Hg] [facility] blood pressure, diastolic, right arm 80 m m[Hg] [facility] blood pressure, systolic, right arm 121 m m[Hg] [facility] blood pressure, diastolic 80 mm[Hg] Candelaria [place] blood pressure, systolic 121 mm[Hg] [facility] pulse rate 81 /min [facility] oxygen saturation, oximetry 93 % [facility] respiratory rate E&M 16 /min [facility] weight E&M 208 [lb_av] [facility] pressure, diastolic 79 mm[Hg] Da daylin [place] blood pressure, systolic 134 mm[Hg] Terry [place] pulse rate 73 /min Dora [place] oxygen saturation, oximetry 100 % Dora [place] respiratory rate E&M 16 /min Laci [place] weight E&M 204 [lb_av] Dora [place] blood pressure, dumont tolic, second observation 68 mm[Hg] Gloria Gonzalez blood pressure, systolic, second observat ion 130 mm[Hg] Gloria Gonzalez blood pressure, diastolic 68 mm[Hg] Ca jaja Gonzalez blood pressure, systolic 130 mm[Hg] Cody Gonzalez pulse rate 85 /min Gloria Gonzalez oxygen saturation, oximetry 99 % Gloria Gonzalez respiratory rate E&M 16 /min Gloria hernandez weight E&M 200.5 [lb_av] Gloria Bull moi ALLERGIES Allergy Name Onset Date Reaction Criticality Status AMOXICILLIN High Criticality active HISTORY OF MEDICATION USE Medication Status Instructions Dates Provider Indications Com ments ALEVE TABLET active as needed Harpreet Terry LUMIGAN SOLUTION active 1 drop into each eye at bedtime Harpreet Terry FOSAMAX 35 MG TABS active 1 tablet by mouth once per week Harpreet Terry EQL ALEJANDRA-C ORAL TABLET active daily Troy Larsen RN BEE POLLEN 500 MG TABS active 1 tab daily D enlawrence Salcedo CENTRUM SILVER ORAL TABLET active 1 tab daily Renetta Salcedo OMEGA-3 FISH OIL 1200 MG ORAL CAPSULE active 1 tag daily Denlawrence Salcedo CLEOCIN 150 MG ORAL CAPSULE completed 1 cap every 6hrs - Harpreet Terry ACETAMINOPHEN-CODEINE #3 300-30 MG ORAL TABLET completed 1 to2 tabs every 4 to 6 hrs as needed for pain - Harpreet Terry ASPIRIN 81 MG ORAL TABLET active ONE TAB. DAILY Sony Wilkinson MD CELEBREX 100 MG ORAL CAPSULE completed 2 capsules by mouth daily - Harpreet Terry KLOR-CON M20 active 1 tablet by mouth daily Harpreet Terry VYTORIN 10-40 MG ORAL TABLET active 1 tablet by mouth daily Harpreet Terry HYDROCHLOROTHIAZIDE 12.5 MG ORAL TABLET active 1 tablet by mouth daily Harpreet Terry SOCIAL HISTORY Date Observation Value Provider social history reviewed E&M reviewed Sony Wilkinson MD social history reviewed E&M reviewed Troy Larsen RN social history reviewed E&M reviewed Sony Wilkinson MD social history E&M Marital Statu s: Single L denia alone E thnicity: Sony Wilkinson MD smoking status Non-Smoker Sony Wilkinson MD social history reviewed E&M reviewed Sony Wilkinson MD physical exercise, f requency, days per week yes [employer] caffeine use, averag e drinks per day yes [employer] alcohol use, average drinks per day none [employer] number of years as a smoker 10 years or m ore [facility] MENTAL STATUS Date Observation Value Provider assessment of judgme nt and insight E&M Alert and oriented to time, place and person. Mood and affect are normal. Sony Wilkinson MD assessment of judgme nt and insight E&M Alert and oriented to time, place and person. Mood and affect are normal. Troy Larsen RN assessment of judgme nt and insight E&M Alert and oriented to time, place and person. Mood and affect are normal. Sony Wilkinson MD assessment of judgme nt and insight E&M Alert and oriented to time, place and person. Mood and affect are normal. Sony Wilkinson MD INSURANCE PROVIDERS Payer name Policy type / Coverage type [place] [employer] insurance [employer] [id number] [place] Medicare [id number] TREATMENT PLAN Date Name Performer Yearly Follow-up: H er updated medication list for this problem includes: Aspirin 81 Mg Tabs (Aspirin) ..... One tab. daily Sony Wilkinson MD Yearly Follow-up:she has not been on any meds for htn and her bp is 126/72 and H er updated medication list for this problem includes: Hydrochlorothiazide 12.5 Mg Tabs (Hydrochlorothiazide) ..... 1 tablet by mouth daily Aspirin 81 Mg Tabs (Aspirin) ..... One tab. daily Orders: E KG ([id number]) Sony Wilkinson MD Yearly Follow-up: H er updated medication list for this problem includes: Vytorin 10-40 Mg Tabs (Ezetimibe-simvastatin) ..... 1 tablet by mouth daily Sony Wilkinson MD Yearly Follow-up Sony Wilkinson MD 6mo, follow up: H er updated medication list for this problem includes: Aspirin 81 Mg Tabs (Aspirin) ..... One tab. daily Carotid Duplex Scan: N ormal GC (09/02/2009) Echocardiogram: N ormal left ventricular systolic function. Normal left ventricular size. Normal left ventricular wall thickness. There is E to A wave reversal consistent with impaired LV relaxation . Normal E/E` 10.0. Left ventricular ejection fraction is estimated at 60%. Normal pericardium with no significant pericardial effusion. Normal aortic root. No significant valvular abnormalities. GC (09/23/2009) Sony Wilkinson MD 6mo, follow up:excel lent H er updated medication list for this problem includes: Hydrochlorothiazide 12.5 Mg Tabs (Hydrochlorothiazide) ..... 1 tablet by mouth daily Aspirin 81 Mg Tabs (Aspirin) ..... One tab. daily BP today: 121/80 P rior BP: 134/79 (09/23/2009) Sony Wilkinson MD 6mo, follow up: H er updated medication list for this problem includes: Vytorin 10-40 Mg Tabs (Ezetimibe-simvastatin) ..... 1 tablet by mouth daily BP today: 121/80 Prior BP: 134/79 (09/23/2009) Sony Wilkinson MD 6mo, follow up Sony Wilkinson MD Sony Wilkinson MD :134/79 H er updated medication list for this problem includes: Hydrochlorothiazide 12.5 Mg Tabs (Hydrochlorothiazide) ..... 1 tablet by mouth daily Sony Wilkinson MD : H er updated medication list for this problem includes: Vytorin 10-40 Mg Tabs (Ezetimibe-simvastatin) ..... 1 tablet by mouth daily P lease adjust cholesterol medication to keep LDL less than 70 and HDL greater than 50 Sony Wilkinson MD Sony Wilkinson MD multiple complaints: 130/68 H er updated medication list for this problem includes: Hydrochlorothiazide 12.5 Mg Tabs (Hydrochlorothiazide) ..... 1 tablet by mouth daily Sony Wilkinson MD multiple complaints: check an echo o therwise the carotid just had mild plaque. Sony Wilkinson MD Date Name Complete Echo Complete Echo HISTORY OF PROCEDURES Procedure Date Procedure Name Provider Procedure Notes S tatus EKG Sony Wilkinson MD completed
--- OUTSIDE RECORDS SUMMARY | 2024-03-25 12:44 | XMS_ITS | Continuity of Care Document ---
Author Organization [employer] [facility] Address [address] [place] [address] Phone Care Team Providers Care Power Electronics Engineer Name Role Phone Doreen Banuelos MD Unavailable Unavailabl e Advance Directives Directive Yes / No Effective Date File Name No Information Encounters Encounter Description Practice Location Reason(s) For Visit Diagnoses Date Provider Providers Copied on Encounter [employer], [address], [place], [place], [address] , [place] tel: [phone] Gaby No Information [address] [place], [place], [id number]. tel:[phone] [employer], [address], [place], [place], [address] , [place] tel: [phone] [place] GYNECOLOGIC EXAMINATIONSCREEN MAL NEOP-CERVIXGENERAL OSTEOARTHROSISDVRTC LO COLON W/O HMRHGOTHER ATOPIC DERMATITISROUTINE MEDICAL EXAMSCREEN MAL NEOP-RECTUMACUTE GASTRTIS W/O HMRHG 3 Banuel[address]en[address] [place], [place], [id number]. tel:[phone] [employer], [address], [place], [place], [address] , [place] tel: [phone] Gaby VACCINATION FOR GY-PLVTVELMIHB-XHSZ ONSEARCY [facility]ITAL[facility] EXAM-GROUP SURVEY 3 Banuelos Doreen. [address] [place], [place], [address]. tel:[phone] [employer], [address], [place], [place], [address] , tel: [phone] Gaby SYMPT FEM CLIMACT STATEHORMONE REPLACE POSTMENO [address] Banuel[address] [place], [place], [address]. tel:[phone] [employer], [address], [place], [place], [address] , tel: [phone] Gaby OSTEOPOROSIS NOSSCREEN MAL NEOP OTH SITE 0200 2 Banuelos [address]en[address] [place], [place], [address]. tel:[phone] [employer], [address], [place], [place], [address] , tel: [phone] Gaby OTITIS MEDIA NOSACUTE URI NOS [address] [employer] [place] [address], [address], . [employer], [address], [place], [place], [address] , tel: [phone] Gaby GLAUCOMA NOSBUNIONPREOP CARDIOVSCLR EXAM 4 1 Banuelos [address]oreen. [address] [place], [place], [id number]. tel:[phone] Family History Family Member Type Diagnosis Age At Onset No Information Immunizations Vaccine Date Status Comments [id number] - TD administered Source: Source Unspecified Payers Payer name Insurance type Covered alliance party ID Authoriza tion(s) No Information Social History Type Description Quantity Date Captured Comments Sex Female Smoking Status No Information Chief Complaint And Reason For Visit No Information Reason For Referral Reason For Referral No Information History Of Present Illness Encounter Date Complaint History Of Prese nt Illness No Information Functional Status Date Functional Assessmen t No Information Instructions Date Instruction Additional Infor mation No Information Assessments Type Assessment Date No Information Patient Care Teams Name Effective Dates (start - stop) Status Members No Information
--- OUTSIDE RECORDS SUMMARY | 2024-03-25 12:44 | XMS_ITS | Clinical Summary ---
Author Organization [facility] Address [address] [place] [address] [place] [address] Care Team Providers Care Real Estate Broker Associate Name Role Phone Unavailable Primary Care Provider Unavailabl e Allergies Active Allergy Reactions Criticality Noted Date Comments Amoxicillin Other (See Comments) High 12/13/2021 BLINDNESS Medications amLODIPine (NORVASC) 5 mg tablet Take 5 mg by mouth late in the day. 4 Active Lumigan 0.01 % solution Administer 1 Drop in both eyes. Active triamterene-hyd roCHLOROthiazid e (MAXZIDE 25) 37.5-25 mg tablet Take 1 Tablet by mouth daily in the morning. 4 Active gabapentin (NEURONTIN) 100 mg capsule Take 100 mg by mouth. Active Active Problems No known active problems Encounters Date Type Department Care Team Description 03/20/2024 External Device Data ST[facility] ABSTRACTION Provider, Abstract 03/11/2024 Chart Note [facility] Emergency Department - [address] [id number] Murtaza Rouse MD 01/29/2024 External Device Data ST[facility] ABSTRACTION Provider, Abstract 01/28/2024 1:30 PM SYSTEMS MANAGER Office Visit [facility] Oncology and Hematology - [address] [place] [address] Octavio Wilkerson MD Ductal carcinoma in situ (DCIS) of breast, unspecified laterality (Primary Dx) from Last 3 Months Immunizations Immunization Administration Dates Next Due INFLUENZA VACCINE HIGH DOSE QUADRIVALENT 65 YR U P PF IM 12/13/2021 Family History Medical History Relation Name Comments No Known Problems Child Heart Disease Father Cancer - Other Mother Tongue Cancer Mother Cancer Sister 1 Diabetes Sister 1 Heart Disease Sister 1 Cancer Sister 2 Diabetes Sister 2 Relation Name Status Comments Child Alive Father Mother Sister 1 Sister 2 Social History Tobacco Use Types Packs/Day Years Used Date Smoking Tobacco: Former Cigarettes 0.2 2 Q uit: 01/28/1984 Smokeless Tobacco: Never Alcohol Use Standard Drinks/Week Comments Yes 0 (1 standard drink = 0.6 oz pur e alcohol) occasionally Comments Unknown Sex and Gender Information Value Date Recorded Sex Assigned at Not on file Legal Sex Female 3:26 PM CDT Gender Identity Not on file Sexual Orientation Not on file Last Filed Vital Signs Vital Sign Reading Time Taken Comments Blood Pressure 124/67 01/28/2024 1:32 PM SYSTEMS MANAGER Pulse 71 01/28/2024 1:32 PM SYSTEMS MANAGER Temperature 36.4 ??C (97.5 ??F) 01/28/2024 1:32 PM CS T Respiratory Rate 16 01/28/2024 1:32 PM SYSTEMS MANAGER Oxygen Saturation 96% 01/28/2024 1:32 PM SYSTEMS MANAGER Inhaled Oxygen Concentration - - Weight 89.8 kg (198 lb) 01/28/2024 1:32 PM SYSTEMS MANAGER Height 154.9 cm (5' 1 ) 01/28/2024 1:32 PM SYSTEMS MANAGER Body Mass Index 37.41 01/28/2024 1:32 PM SYSTEMS MANAGER Plan of Treatment Health Maintenance Due Date Last Done Comments DIABETES ANNUAL FOOT EXAM 01/05/1960 DIABETES ANNUAL RETINAL EXAM 01/05/1960 DIABETES HBA1C Q 6 MONTHS 01/05/1960 DIABETES MICROALBUMIN ANNUAL SCREEN 01/05/1960 LDL CHOLESTEROL ANNUAL 01/05/1960 DTAP/TDAP/TD VACCINES (1 - Tdap) 1961 PNEUMOCOCCAL VACCINE 65+ YEA RS (1 of 2 - PCV) 1961 ZOSTER VACCINE (1 of 2) 01/05/1992 OSTEOPOROSIS SCREENING 2007 RSV VACCINE (60+ or ) (1 - 1-dose 75+ series) 2017 INFLUENZA VACCINE (#1) 2023 2, 10/29/2019, 12/19/2018, Additional history exists [place] ([place]) Preventative Visit/Annual Wellness Visit 02/27/2024 Insurance RX OPTUM RX Member Subscriber Plan / Payer (Ef fective 2021-Present) Name:Ping Espana Relation to Subscriber:Self Name:Ping Espana Subscriber ID:Not on file Payer ID:Not on file Group ID:[id number] Type:RX Medicare Part D Address: DRALENE BAZAN AETNA PPO MCR
[2024-03-25 13:17] LABS: Anion Gap 11 mmol/L (4-12); Blood Urea Nitrogen 20 mg/dL (7-17); Calcium 9.4 mg/dL (8.4-10.2); Carbon Dioxide 26 mmol/L (22-30); Chloride 103 mmol/L (98-107); Estimated Glomerular Filt Rate 55; Glucose 92 mg/dL (65-110); Potassium 4.3 mmol/L (3.4-5.0); Sodium 140 mmol/L (137-145)
== END 2024-03-25 11:26 | disposition home or self-care (01) ==
PROVIDERS: Anesthesiology; Visit Provider Surgery
DX: Z01.818 Encounter for other preprocedural examination (principal); I10 Essential (primary) hypertension
CPT/HCPCS: 36415; 80048; 93005

== ENCOUNTER 2024-04-02 01:28 | Day surgery (SDC) | payer MEDICARE, SELFPAY ==
--- NOTE | 2024-03-21 15:10 | PC.NURSE ---
Report to the Outpatient Waiting Room, entrance under the green pavilion located off [facility], at time _6am on date __04/02/24 . Planned Procedure Time: _7:30 am .? Time changes happen often and if your time is changed the preop area will call you the afternoon before. - You and your visitor will be asked to self-screen and do not enter if you have any COVID symptoms. Please call surgeon if you need to reschedule. - A mask is optional within the hospital at this time. Patients may have clear liquids (water, carbonated beverages, clear teas, apple juice) until 3 hours prior to surgery( 4:30 am) with a maximum of 20 ounces. - No food from midnight until time of surgery and no smoking. This includes no chewing gum, candy or mints. Take only the following medications with a SIP of water on the morning of surgery: ___gabapentin DO NOT STOP ANY OF YOUR OTHER PRESCRIPTION MEDICATIONS PRIOR TO SURGERY EXCEPT THE FOLLOWING Medications to discontinue per physician none Please no make-up, nail syrian, hairspray, perfume, deodorant, or body powder the day of surgery.? No jewelry (including any body piercings) or valuables the day of surgery, leave them at home.? Please take a shower or bath the night before, or the morning of, surgery with an antibacterial soap.? Wear comfortable, loose fitting clothing.? Children are encouraged to wear pajamas. - Jewelry must be removed prior to entering the operating room.? Rings and piercings that are not removed may be cut off. - The hospital will not accept responsibility for valuables.? - Please leave all valuables, including medications, at home the day of surgery. If you are going home after surgery, a licensed driver/sales workers must drive you home.? - NO public transportation without another adult if you receive anesthesia. - We recommend that an adult stay with you for 24 hours following discharge. - We also recommend that you do not drive, make important decision, drink alcoholic beverages, or take any drugs that were not prescribed by your health care provider for at least 24 hours after your discharge time. For Pediatric surgeries, we recommend two adults accompany the child home. Hold all vitamins and supplements for _3 days per _anesthesia last dose 03/29/24 . Follow any additional instructions given to you from your surgeon. Telephone instructions given to __patient and asked if any additional questions and then verbalized understanding. Patient advised to call surgeon office or pre surgery nurse liaison [phone] if any additional questions.
[2024-03-21 15:35] VITALS: BMI 36.6
[2024-04-02] VITALS (7 sets, daily range): BP systolic 101–181; BP diastolic 65–95; PULSE 66–79; RESP 13–16; TEMP 36.2–36.3; O2SAT 100; BMI 37.4
--- NOTE | ~2024-04-02 | MM_ITS ---
MM_FAXITRON_MG 04/02/2024 12:24 Indication: Breast surgery Procedure: Faxitron image of the left breast specimen Comparison: 03/24/2024 Findings: The specimen image demonstrates a magseed device and tissue marker. Please refer to procedu ral report for detailed. Impression: 1: Specimen image contains magseed device and tissue marker. Reviewed, dictated and finalized at location B. H UP EDGER Impression: 1: Specimen image contains magseed device and tissue marker.
--- NOTE | ~2024-04-02 | MM_ITS ---
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 TECHNIQUE: The procedure for a mammography-guided needle localization was discussed with the patient' s. Risks and benefits were detailed, including risks of bleeding, infection, pain, and nondiagnostic specimen. The patient verbalized understanding and agreed to proceed. The time out was performed to verify the patient's name, date of , and site of procedure. The p atient was placed in [ compression, and the skin overlying the right breast was prepped in usual fas hion. Utilizing mammography guidance, a needle was advanced into the right breast. Two confirmatory films were obtained. The patient tolerated procedure without immediate complication. A specimen radiograph was performed. FINDINGS: Two view confirmatory films of the right breast demonstrate a the wire adjacent to the tiss ue marker and calcifications of interest. Tissue marker and calcifications R contained within the rogers rgical specimen.] IMPRESSION: 1. Successful mammography-guided right breast needle localization. Reviewed, dictated and finalized at location [] [employer] SALES ENGINEER IMPRESSION: 1. Successful mammography-guided right breast needle localization.
--- OUTSIDE RECORDS SUMMARY | 2024-04-02 01:32 | XMS_ITS | Clinical Summary ---
Author Organization [facility] Address [address] [place] [address] [place] [address] Care Team Providers Care Charge Attendant Name Role Phone Unavailable Primary Care Provider [...] Encounters Date Type Department Care Team Description 03/26/2024 External Device Data STL ABSTRACTION Provider, Abstract 03/20/2024 External Device Data STL ABSTRACTION Provider, Abstract 03/11/2024 Chart Note [facility] Emergency Department - [address] [address] Murtaza Rouse MD 01/29/2024 External Device Data STL ABSTRACTION Provider, Abstract 01/28/2024 1:30 PM FACILITY MANAGER Office Visit [facility] Oncology and Hematology - [address] [place] [address] Octavio Wilkerson MD Ductal carcinoma [...] Comments Blood Pressure 124/67 01/28/2024 1:32 PM FACILITY MANAGER Pulse 71 01/28/2024 1:32 PM FACILITY MANAGER Temperature 36.4 ??C (97.5 ??F) 01/28/2024 1:32 PM CS T Respiratory Rate 16 01/28/2024 1:32 PM FACILITY MANAGER Oxygen Saturation 96% 01/28/2024 1:32 PM FACILITY MANAGER Inhaled Oxygen Concentration - - Weight 89.8 kg (198 lb) 01/28/2024 1:32 PM FACILITY MANAGER Height 154.9 cm (5' 1 ) 01/28/2024 1:32 PM FACILITY MANAGER Body Mass Index 37.41 01/28/2024 1:32 PM FACILITY MANAGER Plan of Treatment Health Maintenance Due [...] 10/29/2019, 12/19/2018, Additional history exists [place] ([place]) Preventative Visit/Annual Wellness Visit 02/27/2024 Insurance RX OPTUM RX Member Subscriber Plan / Payer (Ef fective 2021-Present) Name:Ping Espana Relation to Subscriber:Self Name:Ping Espana Subscriber ID:Not on file Payer ID:Not on file Group ID:[id number] Type:RX Medicare Part D Address: DARLENE BAZAN AETNA PPO MCR
--- OUTSIDE RECORDS SUMMARY | 2024-04-02 01:32 | XMS_ITS | CONTINUITY OF CARE DOCUMENT ---
Author Name soham jackybarb Address Unknown Organization [facility] Address [address] [place] [address] Phone [phone] Care Team Providers Care Strip Stamp Straightener Name Role Phone Minh LINARES, Sony Unavailable SUSY DAVALOS Unavailable [phone] JOAN LINARES, GIANFRANCO Unavailable [phone] PROBLEMS Condition Status Date Provider Notes CVA active Sony Wilkinson MD HTN-09/04 ECHO NL EF 60 active ? Troy Larsen RN [id number] DR SULLIVAN active 8 Sony Wilkinson MD OBESITY active Sony Wilkinson MD ENCOUNTERS Date Type Provider Location Encounter Diagnosis - In-person encounter Office Visit Sony Wilkinson MD [place] [facility] - In-person encounter Office Visit Sony Wilkinson MD [facility] HYPERCHOLESTEROLEM IA0PER DR SULLIVAN - In-person encounter Office Visit Sony Wilkinson MD [facility] - In-person encounter Office Visit Sony Wilkinson MD [facility] CVAHTN-09/04 ECHO NL EF 60HYPERCHOLESTEROL [id number] DR SULLIVANOBESITY VITAL SIGNS Date Observation Value Provider blood pressure, diastolic 72 mm[Hg] Rhoda seph [place] blood pressure, systolic 126 mm[Hg] Durga eph [facility] pulse rate 71 /min [facility] oxygen saturation, oximetry 99 % [facility] respiratory rate E&M 16 /min [facility] weight E&M 189 [lb_av] [facility] blood pressure, diastolic, left arm 78 mm [Hg] [facility] blood pressure, systolic, left arm 118 mm [Hg] [facility] blood pressure, diastolic, right arm 80 m m[Hg] [facility] blood pressure, systolic, right arm 121 m m[Hg] [facility] blood pressure, diastolic 80 mm[Hg] Candelaria [place] blood pressure, systolic 121 mm[Hg] [facility] pulse rate 81 /min [facility] oxygen saturation, oximetry 93 % [facility] respiratory rate E&M 16 /min [facility] weight E&M 208 [lb_av] [facility] blood pressure, diastolic 79 mm[Hg] Da [...] a smoker 10 years or m ore [facility] MENTAL STATUS Date Observation Value Provider assessment [...] Payer name Policy type / Coverage type [place] [employer] insurance [employer] [id number] [place] Medicare [id number] TREATMENT PLAN Date Name Performer Yearly Follow-up: [...] ..... One tab. daily Orders: E KG ([id number]) Sony Wilkinson MD Yearly Follow-up: H er [...]
--- NOTE | 2024-04-02 07:02 | WPDHPUPDATE1 ---
History and Physical Update Update Date/Time: 04/02/24 07:02 - Bilateral breast lumpectomies with Mag seed localization and possible adjacent tissue transfer History and Physical has been reviewed, including an updated exam of the patient. There are NO changes in the patient's condition. Risks, benefits, and alternatives have been discussed and questions answered. Patient agrees to proceed with procedure.
[2024-04-02] MEDS: ACETAMINOPHEN 500 MG TABLET 1000 MG PO (07:04)
[2024-04-02] MEDS: LACTATED RINGERS 1,000 ML 30 ML IV CONT (07:05)
--- NOTE | 2024-04-02 07:45 | WPDANESEPPF ---
Anes - Initial Pre Proc Eval Procedure: Operation Date: 04/02/24 07:30 Proposed Procedures p Left Breast Lumpectomy with Mag Seed Localization, Possible Bilateral Adjacent Tissue Transfer - Sharona Aj MD s Right Breast Lumpectomy with Ultrasound and or Mammogram Guided Needle Localization - Sharona Aj MD Date/Time: 04/02/24 07:45 Surgeon: Sharona Aj MD Pre Op Diagnosis: intraductal CA insitu bilat breasts Patient Data Age: 84 Gender: F Height: 1.57 m Weight: 90.75 kg Allergies Allergy/AdvReac Type Severity Reaction Status Date / Time amoxicillin Allergy Unknown VISUAL Verified 03/26/24 15:13 PROBLEMS Mushroom Allergy Mild Nausea and Uncoded 03/26/24 15:13 Vomiting Home Medications ?Medication ?Instructions ?Recorded ?Confirmed ?Type multivitamin (Daily Multi-Vitamin 1 tablet PO DAILY 01/15/19 03/21/24 History tablet) omega 7-nww-cdj-fish oil 1,000 mg 1 cap PO DAILY 02/13/19 03/21/24 History (120 mg-180 mg) capsule (Fish Oil) bimatoprost 0.01 % eye drops 1 drp ophthalmic (eye) HS 12/24/19 03/21/24 History (Lumigan) ascorbic acid (vitamin C) 500 mg 500 mg PO DAILY 06/23/21 03/21/24 History capsule mecobalamin (vitamin B12) 500 mcg 1,000 mcg PO DAILY 08/28/22 03/21/24 History chewable tablet gabapentin 100 mg capsule 100 mg PO TID #90 caps 06/28/23 03/21/24 Rx triamterene 37.5 See Rx Instructions .Route 01/29/24 03/21/24 Rx mg-hydrochlorothiazide 25 mg tablet .COMPLEX #90 tabs cholecalciferol (vitamin D3) 25 25 mcg PO DAILY 03/21/24 03/21/24 History mcg (1,000 unit) capsule amlodipine 5 mg tablet See Rx Instructions .Route 03/27/24 Rx .COMPLEX #90 tabs Patient hx anesthesia problems: none Family hx anesthesia problems: none Results Review: All pre-operative results and documents have been reviewed as part of the pre-operative evaluation. [facility] Past Medical History Medical History [place] (hard of hearing) Hemoptysis Recurrent epistaxis Skull fracture Morbid (severe) obesity due to excess calories Benign essential HTN Coughing blood Screening for diabetes mellitus (DM) Sleep disturbance SINDHU (obstructive sleep apnea) Vaginal atrophy Screening for cervical cancer Nocturnal leg movements Nightmares Essential hypertension Chronic otitis externa of both ears Osteoarthritis of left hip BMI 38.0-38.9,adult Abnormal finding on ultrasound Obesity SINDHU (obstructive sleep apnea) Clear vaginal discharge High cholesterol Glaucoma Hypertension Thyroid disease Surgical History Surgical History S/P partial thyroidectomy History of hip surgery History of cholecystectomy H/O knee surgery left tka 2010, Dr. Gallegos Right tka, 2007, Dr. Gallegos S/P dilation and curettage History of tubal ligation Family History Family History Sibling Hypertension Family history of diabetes mellitus in first degree relative Diabetes mellitus Other Cerebrovascular accident Social History Social History Social History: Single Smoking status: Never smoker Tobacco type: cigarettes Second hand tobacco smoke exposure: No Alcohol intake: never Substance use: never Substance use type: does not use Do You Feel Safe in your Home?: Yes Lack of Transportation: No Lack of Food: Never True Current Housing: I Have Housing Concerned About Future Housing: No Difficulty Paying Gas/Electric Bills: No Difficulty Paying for Meds: No Currently Unemployed: YES Education: Don't Know Difficulty w/ Childcare or Family Care: No Living arrangements: alone Occupation/Education: retired Gender identity (if verbalized by the patient): Female Sexual Orientation (if Verbalized by the Patient): Straight or Heterosexual Spiritual care concerns: No Agree to blood products: Yes Anes - Eval Final PreProcedure Day of Procedure 04/02/24 07:45 Patient weight: obese Heart: regular rate and rhythm Lungs: clear to auscultation Airway: Mallampati scale class II Neurological: alert and oriented Last oral intake: >/= 8 hours ASA classification: III Emergent: no Anesthetic plan: proceed Anesthesia type and monitoring: general LMA and standard monitoring Results Review: All pre-operative results and documents have been reviewed as part of the pre-operative evaluation. Informed Consent: The patient's anesthetic plan and its attendant risks and benefits were discussed with the patient/family/POA. Questions were solicited and answers provided to the satisfaction of the patient/family/POA.
[2024-04-02] MEDS: ceFAZolin 2 GM/D5W 50 ML 2 GM/50 ML BAG IVPB (07:52)
[2024-04-02] MEDS: BUPIVACAINE/EPINEPHRINE 0.5% 30 ML VIAL INFILTRATE (08:18)
--- NOTE | 2024-04-02 09:06 | SUR.OPER ---
Right Breast Lumpectomy Needle Localization specimen and Right Breast misplaced mag seed sent with NAN Dozier and received in pathology by Jennifer
--- NOTE | 2024-04-02 09:51 | SUR.OPER ---
Left Breast Lumpectomy sent with NAN Dozier and received in pathology by Ramy
--- NOTE | 2024-04-02 10:12 | P.OP_ITS ---
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 She underwent tumor localization previously by IR with magseed placement and needle localization on the right. She was laid supine in the operating table and sequential compression devices were applied. General anesthesia was induced without difficulties. Bilateral chest areas were prepped and draped in a sterile fashion. Attention was then turned to the right breast. The previously placed Mag seed on the right breast was misplaced at the site of the old clip as opposed to the biopsy-proven DCIS in the upper outer quadrant and does the needle Mary was placed the morning of surgery. This skin and subcutaneous tissue was infiltrated with 0.25% Marcaine and an incision was made overlying the needle on the skin. Dissection was carried down through the subcutaneous tissue into the breast and a rim of breast tissue around the needle was excised along with the needle for or lumpectomy specimen. Once the specimen was completely excised it was placed in the Faxitron and 2 x-rays images were obtained to verify that the entire needle including the needle tip as well as the biopsy clip and the calcifications were included within the specimen. The lumpectomy cavity was irrigated with saline hemostasis was assured. The deep dermal layer was then closed with 3-0 Vicryl followed by 4-0 Monocryl to the subcuticular fashion for the skin. Dermabond was applied followed by a sterile dressing. Attention was then turned to the left breast. The sentimag probe was used to identify the area where the magseed was placed and a upper outer quadrant curvilinear incision was made overlying this area. Dissection was carried down through the subcutaneous tissue into the breast tissue. The magseed was identified using sentimag probe, and a rim of normal breast tissue was excised along with the calcifications as our lumpectomy specimen. Once the specimen was completely excised, it was oriented using surgical paint according to line department supervisor instructions. The specimen was placed in the faxitron and 2 radiographs were obtained and sent to Radiology for radiographic confirmation of calcifications, biopsy marker and magseed within the specimen. Once the radiographic confirmation was received, the wound was irrigated with saline and hemostasis was assured. The deep dermal layer was approximated using interrupted 3-0 vicryl followed by 4-0 monocryl for the skin. Dermabond was applied followed by a surgical bra. Patient was awoken from anesthesia and taken to the recovery area in stable condition. All needles, instruments and sponge counts were correct as reported by the operating room staff. Patient tolerated the procedure well with no immediate complications. Estimated Blood Loss 20 Pathology Yes Complications No immediate complications Condition Stable Disposition PACU [facility] Billing Surgery - Charge Forward: Surgery Billing (CPT 16758 - R, CPT 05077 - 59 L)
== END 2024-04-02 12:29 | disposition home or self-care (01) ==
PROVIDERS: Visit Provider Surgery
PROC: (CPT 19301; principal; 2024-04-02 07:30)
PROC: (CPT 19301; 2024-04-02 07:30)
DX: D05.12 Intraductal carcinoma in situ of left breast (principal); D05.11 Intraductal carcinoma in situ of right breast; E66.9 Obesity, unspecified; Z68.37 Body mass index [BMI] 37.0-37.9, adult
CPT/HCPCS: 19301; 19281; 76098; 88300; 88307; A9270; C1769; J0690; J1100; J2003; J2405; J2704; J3010; J7120; Q9968

== ENCOUNTER 2024-04-30 00:58 | Day surgery (SDC) | payer MEDICARE, SELFPAY ==
[2024-04-28 11:25] VITALS: BMI 36.6
[2024-04-28 11:27] VITALS: BMI 36.6
--- OUTSIDE RECORDS SUMMARY | 2024-04-30 01:02 | XMS_ITS | Encounter Summary ---
Author Organization [facility] Healthcare Address [address] [place] [address] Care Team Providers Care Director Consumer Affairs Name Role Phone Mahi Gomez MD Primary Care Provider [phone] Nhung Villalba MD Primary Care Provider [phone] Reason for Referral * Diagnostic Imaging (Routine) - Authorized Specialty Diagnoses / Procedures Referred By Contac t Referred To Contact Diagnoses Research subject Procedures NM Radiopharmaceutical Distribution SPECT (1 area, 1 day) Nhung Villalba MD [address] [place] [address] Phone: tel: fax: [address] [address] Referral ID Status Reason Start Date Expiration Date V isits Requested Visits Authorized [id number] Authorized 10/12/2023 11/10/2024 3 3 Encounter Details Date Type Department Care Team (Late st Contact Info) Description 10/12/2023 Orders Only Neurology Nhung Villalba MD [address] [place], [place] [id number] Research subject (Primary Dx) Social History Tobacco Use Types Packs/Day Years Used Date Smoking Tobacco: Former Cigarettes 1 3 - 1983 Smokeless Tobacco: Never Alcohol Use Standard Drinks/Week Comments Not Currently 0 (1 standard drink = 0.6 oz pur e alcohol) AUDIT-C Answer Date Recorded Q1: How often do you have a drink containing alc ohol? Monthly or less 12/31/2020 Q2: How many drinks containi ng alcohol do you have on a typical day when you are drinking? 1 or 2 12/31/2020 Q3: How often do you have si x or more drinks on one occasion? Never 12/31/2020 Comments No Sex and Gender Information Value Date Recorded Sex Assigned at Not on file Legal Sex Female 6:37 AM SHIPPER Gender Identity Female 09/05/2020 5:52 PM CDT Sexual Orientation Straight 09/05/2020 5: 52 PM CDT Occupation Industry Job Start Date Job End Date retired Not on file Not on file Not on file documented as of this encounter Plan of Treatment Not on file documented as of this encounter Results * NM Radiopharmaceutical Distribution SPECT (1 area, 1 day) (11/29/2023 4:03 PM CDT) Anatomical Region Laterality Modality N/A Nuclear Medicine 12/01/2023 7:51 AM CDT Impressions 12/01/2023 7:51 AM CDT This examination was performed for research purposes only. If needed, contact the elementary principal, Nhung Villalba MD, for additional details. Electronically signed by: Dk Weston M.D. Narrative 12/01/2023 7:51 AM CDT EXAMINATION: RESEARCH IMAGING EXAMINATION DATE OF STUDY: 11/29/2023 RADIOPHARMACEUTICAL: 4.73 mCi I-123 Ioflupane i.v. and 300 mg SSKI p.o. Procedure Note Dk Weston MD - 12/01/2023 EXAMINATION: RESEARCH IMAGING EXAMINATION DATE OF STUDY: 11/29/2023 RADIOPHARMACEUTICAL: 4.73 mCi I-123 Ioflupane i.v. and 300 mg SSKI p.o. IMPRESSION: This examination was performed for research purposes only. If needed, contact the elementary principal, Nhung Villalba MD, for additional details. Electronically signed by: Dk Weston M.D. us Nhung Villalba MD IMG NM PROCEDURES Final Result documented in this encounter Visit Diagnoses Diagnosis Research subject- Primary Research subject documented in this encounter Care Teams Director Consumer Affairs Relationship Specialty Start Date End Date Mahi Gomez MD [facility] [place] [address] PCP - General 11/24/10 11/21/23 Nhung Villalba MD [address] [facility] [address] [place] [address] PCP - General Neurology 11/22/23 documented as of this encounter
--- OUTSIDE RECORDS SUMMARY | 2024-04-30 01:02 | XMS_ITS | Continuity of Care Document ---
Author Organization [facility] Address [address] [place] [address] Phone Care Team Providers Care Cooler Worker Name Role Phone Doreen Banuelos MD Unavailable Unavailabl e Advance Directives Directive Yes / No Effective Date File Name No Information Encounters Encounter Description Practice Location Reason(s) For Visit Diagnoses Date Provider Providers Copied on Encounter [facility], [address], [place], [place], [address] , [place] tel: [phone] Gaby No Information [address] [place], [place], [id number]. tel:[phone] [facility], [address], [place], [place], [address] , [place] tel: [phone] Etoile GYNECOLOGIC EXAMINATIONSCREEN MAL NEOP-CERVIXGENERAL OSTEOARTHROSISDVRTC LO COLON W/O HMRHGOTHER ATOPIC DERMATITISROUTINE MEDICAL EXAMSCREEN MAL NEOP-RECTUMACUTE GASTRTIS W/O HMRHG 3 [address] [place], [place], [id number]. tel:[phone] [facility], [address], [place], [place], [address] , [place] tel: [phone] Gaby VACCINATION FOR [id number] [facility] 3 [address] [place], [place], [address]. tel:[phone] [facility], [address], [place], [place], [address] , tel: [phone] Gaby SYMPT FEM CLIMACT STATEHORMONE REPLACE POSTMENO [address] [place], [place], [address]. tel:[phone] [facility], [address], [place], [place], [address] , tel: [phone] Gaby OSTEOPOROSIS NOSSCREEN MAL NEOP OTH SITE [address] [place], [place], [address]. tel:[phone] [facility], [address], [place], [place], [address] , tel: [phone] Gaby OTITIS MEDIA NOSACUTE URI NOS [address] [place] [address], [address], . [facility], [address], [place], [place], [address] , tel: [phone] Gaby GLAUCOMA NOSBUNIONPREOP CARDIOVSCLR EXAM [address] [place], [place], [address]. tel:[phone] Family History Family Member Type Diagnosis Age At Onset No Information Immunizations Vaccine Date Status Comments 18599 - TD administered Source: Source Unspecified Payers Payer name Insurance type Covered green party ID Authoriza tion(s) No Information Social [...]
--- OUTSIDE RECORDS SUMMARY | 2024-04-30 01:02 | XMS_ITS | CONTINUITY OF CARE DOCUMENT ---
Author Name soham jackybarb Address Unknown Organization [facility] Address [address] [place] [address] Phone [phone] Care Team Providers Care Department Head [employer] Name Role Phone Minh LINARES, Sony Unavailable SUSY DAVALOS Unavailable [phone] JOAN LINARES, GIANFRANCO Unavailable PROBLEMS Condition Status Date Provider Notes CVA active Sony Wilkinson MD HTN-09/04 ECHO NL EF 60 active ? Troy Larsen RN [id number] DR SULLIVAN active 8 Sony Wilkinson MD OBESITY active Sony Wilkinson MD ENCOUNTERS Date Type Provider Location Encounter Diagnosis - In-person encounter Office Visit Sony Wilkinson MD [place] [facility] - In-person encounter Office Visit Sony Wilkinson MD [place] [facility] HYPERCHOLESTEROLEM IA0PER DR SULLIVAN - In-person encounter Office Visit Sony Wilkinson MD [place] [facility] - In-person encounter Office Visit Sony Wilkinson MD [place] [facility] CVAHTN-09/04 ECHO NL EF 60HYPERCHOLESTEROL [id number] DR SULLIVANOBESITY VITAL SIGNS Date Observation Value Provider blood pressure, diastolic 72 mm[Hg] Rhoda seph [place] blood pressure, systolic 126 mm[Hg] Durga eph [facility] pulse rate 71 /min [facility] oxygen saturation, oximetry 99 % [facility] respiratory rate E&M 16 /min [facility] weight E&M 189 [lb_av] [facility] blood pressure, diastolic, left arm 78 mm [Hg] [facility] blood pressure, systolic, left arm 118 mm [Hg] [facility] blood pressure, diastolic, right arm 80 m m[Hg] [facility] blood pressure, systolic, right arm 121 m m[Hg] [facility] blood pressure, diastolic 80 mm[Hg] [facility] [place] blood pressure, systolic 121 mm[Hg] [facility] pulse rate 81 /min [facility] oxygen saturation, oximetry 93 % [facility] respiratory rate E&M 16 /min [facility] weight E&M 208 [lb_av] [facility] blood pressure, diastolic 79 mm[Hg] Da [...] thnicity: Sony Wilkinson MD smoking status Non-Smoker oSny Wilkinson MD social history reviewed E&M reviewed Sony Wilkinson MD physical exercise, f requency, days per week yes [employer] caffeine use, averag e drinks per day yes [employer] alcohol use, average drinks per day none [employer] number of years as a smoker 10 years or m ore [facility] MENTAL STATUS Date Observation Value Provider assessment [...] Payer name Policy type / Coverage type [place] insurance [employer] [id number] [place] Medicare [id number] TREATMENT PLAN Date Name Performer Yearly Follow-up: [...] ..... One tab. daily Orders: E KG (CPT-37802) Sony Wilkinson MD Yearly Follow-up: H er [...]
--- OUTSIDE RECORDS SUMMARY | 2024-04-30 01:02 | XMS_ITS | Clinical Summary ---
Author Organization [facility] Address [address] [place] [address] [place] [address] Care Team Providers Care Outside Medical Sales Representative Name Role Phone Unavailable Primary Care Provider [...] Encounters Date Type Department Care Team Description 04/25/2024 12:30 PM FLOOR BROKER Office Visit [facility] Oncology and Hematology - Yousif [address] [address] Octavio Wilkerson MD Osteopenia of multiple sites (Primary Dx) 04/16/2024 External Device Data [facility] ABSTRACTION Provider, Abstract 03/26/2024 External Device Data [facility] ABSTRACTION Provider, Abstract 03/20/2024 External Device Data [facility] ABSTRACTION Provider, Abstract 03/11/2024 Chart Note [facility] Emergency Department - [address] [address] Murtaza Rouse MD from Last 3 Months Immunizations Immunization Administration [...] 2 Q uit: 01/28/1984 Smokeless Tobacco: Never Tobacco Cessation:Counseling Given: Not Answered Alcohol Use Standard Drinks/Week Comments Yes 0 (1 standard drink = 0.6 oz pur e alcohol) occasionally Comments Unknown Sex and Gender Information Value Date Recorded Sex Assigned at Not on file Legal Sex Female 3:26 PM CDT Gender Identity Not on file Sexual Orientation Not on file Last Filed Vital Signs Vital Sign Reading Time Taken Comments Blood Pressure 145/74 04/25/2024 12:25 PM FLOOR BROKER Pulse 80 04/25/2024 12:21 PM FLOOR BROKER Temperature 35.7 C (96.3 F) 04/25/2024 12:21 PM FLOOR BROKER Respiratory Rate 15 04/25/2024 12:21 PM FLOOR BROKER Oxygen Saturation 95% 04/25/2024 12:21 PM FLOOR BROKER Inhaled Oxygen Concentration - - Weight 91 kg (200 lb 9.6 oz) 04/25/2024 12:21 PM FLOOR BROKER Height 154.9 cm (5' 1 ) 01/28/2024 1:32 PM FLOOR BROKER Body Mass Index 37.9 01/28/2024 1:32 PM FLOOR BROKER Plan of Treatment Upcoming Encounters Date Type Department Care Team (Late st Contact Info) Description 05/30/2024 11:00 AM CDT Office Visit [facility] Oncology and Hematology - Yousif [address] [facility] [address] [place] [address] Octavio Wilkerson MD [address] [facility] [address] [place] [address] Health Maintenance Due Date Last Done Comments DIABETES ANNUAL FOOT EXAM 01/05/1960 DIABETES ANNUAL RETINAL EXAM 01/05/1960 DIABETES HBA1C Q 6 MONTHS 01/05/1960 DIABETES MICROALBUMIN ANNUAL SCREEN 01/05/1960 LDL CHOLESTEROL ANNUAL 01/05/1960 DTAP/TDAP/TD VACCINES (1 - Tdap) 1961 PNEUMOCOCCAL VACCINE 50+ YEA RS (1 of 2 - PCV) [...]
--- OUTSIDE RECORDS SUMMARY | 2024-04-30 01:02 | XMS_ITS | Referral Summary ---
Author Organization [facility] Address [address] [place] [id number] Care Team Providers Care Laboratory Mechanical Technician Name Role Phone Nhung Villalba MD Primary Care Provider [phone] Allergies Active Allergy Reactions Criticality Noted Date Comments Amoxicillin Vision changes High 03/24/2011 Temporary blindness Latex Rash Medium 10/06/2020 Medications amLODIPine (NORVASC) 2.5 mg tabletIndications :hypertension Take 2.5 mg by mouth nightly 06/06/19 20 Active Lumigan 0.01 % ophthalmic dropsIndications: open angle glaucoma Administer 1 drop into both eyes nightly 08/06/19 20 Active Nystop powderIndications :cutaneous candidiasis Apply 1 application topically as needed 08/18/19 20 Active clindamycin (CLEOCIN) 300 mg capsuleIndication s:Other (complete free text reason below),dental appointment Take 300 mg by mouth as needed 09/02/19 20 Active folic acid/multivit-min /lutein (CENTRUM SILVER ORAL)Indications: supplement Take 1 tablet by mouth every morning 02/26/18 70 Active ascorbate calcium/bioflavon oid (ALEJANDRA-C WITH BIOFLAVONOIDS ORAL)Indications: supplement Take 1 capsule by mouth every morning 02/26/18 70 Active omega-3 fatty acids-fish oil 360-1,200 mg capsuleIndication s:hypertriglyceri demia Take 1 capsule by mouth every morning 02/26/18 70 Active triamcinolone (KENALOG) 0.1 % creamIndications: skin rash Apply 1 application topically as needed for irritation Active calcium carbonate (OS-SOCORRO) 1,250 MG (500 mg of elemental calcium) tabletIndications :hypocalcemia Take 1 tablet by mouth daily after lunch Active Lactobac no.41/Bifidobact no.7 (PROBIOTIC-10 ORAL) Take 1 tablet by mouth every morning Active cyanocobalamin (Vitamin B-12) 1,000 mcg tabletIndications :Prevention of Vitamin B12 Deficiency Take 1,000 mcg by mouth every morning Active aspirin 81 mg chewable tablet Take 1 tablet (81 mg total) by mouth 2 (two) times a day 60 tablet 01/02/20 21 Active HYDROcodone-aceta minophen (NORCO) 5-325 mg per tabletIndications :Pain Take 1-2 tablets every 4-6 hours as needed for pain 56 tablet 01/19/20 21 Active meloxicam (MOBIC) 15 mg tabletIndications :Osteoarthritis Take 1 tablet (15 mg total) by mouth daily 30 tablet 04/20/19 22 Active carbamide peroxide (DEBROX) 6.5 % otic solution Debrox 6.5 % ear drops INSTILL 5 DROPS INTO AFFECTED EAR(S) BY OTIC ROUTE 2 TIMES PER DAY Active ciprofloxacin-dex AMETHasone (CIPRODEX) otic suspension ciprofloxacin 0.3 %-dexamethasone 0.1 % ear drops,suspension SHAKE LIQUID AND INSTILL 4 DROPS TO AFFECTED EAR TWICE DAILY FOR 7 DAYS Active Active Problems Problem Noted Date Diagnosed Date SINDHU (obstructive sleep apnea) 12/29/2020 Essential (primary) hypertension 10/06/2020 Weakness of limb 09/08/2020 Cough 09/08/2020 Diabetes mellitus 09/08/2020 Hyperlipidemia 09/08/2020 Hypertensive disorder 09/08/2020 Low back pain 09/08/2020 Primary osteoarthritis of left hip 09/08/2020 Pain in upper limb 09/08/2020 Cerebrovascular accident (CVA) 09/02/2009 Class 2 obesity in adult 09/02/2009 Pure hypercholesterolemia 09/02/2009 Immunizations Immunization Administration Dates Next Due Hep A, Adult 05/25/2017,10/30/2016 Hep B Vaccine 12/07/2016,10/30/2016 Influenza, Quadrivalent, Hig h Dose, Preservative Free, Intrr 10/29/2019 Influenza, Quadrivalent, Spl it, Preservative Free, Intramuscular 12/27/2012 Influenza, Trivalent, High D ose, Split, Preservative Free, Intramuscular 12/19/2018,12/07/2017,12/29/2016,11/12,03/03/2014 Influenza, Trivalent, IM (MDV) 02/03/2012 Typhoid Inactivated 10/30/2016 Social History Tobacco Use Types Packs/Day Years Used Date Smoking Tobacco: Former Cigarettes 1 1983 Smokeless Tobacco: Never Alcohol Use Standard [...] on file Legal Sex Female 6:37 AM BRANCH MAKER Gender Identity Female 09/05/2020 5:52 PM CDT Sexual Orientation Straight 09/05/2020 5: 52 PM CDT Occupation Industry Job Start Date Job End Date retired Not on file Not on file Not on file Last Filed Vital Signs Vital Sign Reading Time Taken Comments Blood Pressure 141/57 01/02/2021 11:40 AM BRANCH MAKER Pulse 79 01/02/2021 11:40 AM BRANCH MAKER Temperature 36.8 C (98.2 F) 01/02/2021 11:40 AM BRANCH MAKER Respiratory Rate 16 01/02/2021 11:40 AM BRANCH MAKER Oxygen Saturation 97% 01/02/2021 11:40 AM BRANCH MAKER Inhaled Oxygen Concentration - - Weight 93.2 kg (205 lb 6.4 oz) 01/01/2021 11:30 AM CDT Height 157.5 cm (5' 2.01 ) 01/01/2021 11:30 AM C DT Body Mass Index 37.56 01/01/2021 11:30 AM CDT Plan of Treatment Not on file Medical Devices Implanted Type Area Batter Mixer Device Identifier Shelf Expiration Date Model / Serial / Lot [employer] [id number] Cup Acetabular Bi-Mentum Od51mm Femoral Proximal Press Fit - Sna - [id number] Implanted:Qty: 1 on 12/31/2020 by Luciano Burnett MD at [facility] Other - see comments Left: Hip [employer] [id number] 06/25/2024 [id number] / NA / Description:Implant pause pe rformed [employer] Actis 105mm Collar Hip 5 Standard Offset Stem Femoral - Sna - [id number] Implanted:Qty: 1 on 12/31/2020 by Luciano Burnett MD at [facility] Other - see comments Left: Hip [employer] [id number] 10/26/2030 / NA / [id number] Description:Implant pause pe rformed [employer] [id number] Liner Acetabular Bi-Mentum Polyethylene Od51mm Id28mm Femoral Proximal - Sna - [id number] Implanted:Qty: 1 on 12/31/2020 by Luciano Burnett MD at [facility] Other - see comments Left: Hip [employer] [id number] 12/26/2024 [id number] / NA / [id number] Description:Implant pause pe rformed [employer] [id number] Articul/Sridhar 28mm Cementless Hip +1.5mm 12/14 Taper Head Femoral Latex Free - Sna - [id number] Implanted:Qty: 1 on 12/31/2020 by Luciano Burnett MD at [facility] Other - see comments Left: Hip [employer] 07/26/2025 [id number] / NA / [id number] Description:Implant Procedures Procedure Name Priority Date/Time Associated Diagnosis Comments EGFR Routine 12/20/2020 12:05 PM CDT Primary osteoarthritis of left hip from Last 3 Months or Most Recently Relevant to Health Maintenance Results * eGFR (12/20/2020 12:05 PM CDT) eGFR 85 mL/min/1.7 3 m2 [facility] Comment: Interpretive Data Reference Interval Normal >/= 90 mL/min/1.73m2 Mildly decreased* 60 - 89 mL/min/1.73m2 Mildly to moderately decreased 45 - 59 mL/min/1.73m2 Moderately to severely decreased 30 - 44 mL/min/1.73m2 Severely decreased 15 - 29 mL/min/1.73m2 Kidney Failure < 15 mL/min/1.73m2 *Relative to young adult level Estimated glomerular filtration rate is determined by the CKD-EPI equation recommended by the National Kidney Foundation (KDIGO 2012 Clinical Practice Guideline for the Evaluation and Management of Chronic Kidney Disease. Kidney Intnl Suppl Feb 2012;3:1). The CKD-EPI equation should not be used for patients with unstable renal function and has not been validated in children and those over 70. Current interpretive data was last reviewed 2020 Blood 12/20/2020 12:0 5 PM CDT 12/20/2020 12:24 PM CDT Luciano Burnett MD LAB BLOOD ORDERABLES Valerie crocker Result [facility] [address] [facility]. Department [place] [address] from Last 3 Months or Most Recently Relevant to Health Maintenance Insurance MEDICARE SOLUTIONS [employer] MEDICARE [facility] MEDICARE Advance Directives For more information, please contact: [phone] * Full Code (Latest Code Status on File) Date Activated Date Inactivated Comments 12/31/2020 4:31 PM 01/02/2021 7:04 PM Care Teams Laboratory Mechanical Technician Relationship Specialty Start Date End Date Nhung Villalba MD [address] [place] [address] PCP - General Neurology 11/22/23
--- OUTSIDE RECORDS SUMMARY | 2024-04-30 01:02 | XMS_ITS | Clinical Summary ---
Author Organization [facility] Address [address] [place] [id number] Care Team Providers Care Summer Analyst Name Role Phone Nhung Villalba MD Primary Care Provider [phone] Allergies Active Allergy Reactions Criticality Noted Date [...] Trivalent, IM (MDV) 02/03/2012 Typhoid Inactivated 10/30/2016 Surgical History Surgery Date Site/Laterality Comments CHOLECYSTECTOMY THYROID SURGERY KNEE SURGERY BUNIONECTOMY TONSILLECTOMY JOINT REPLACEMENT Medical History Medical History Date Comments Ear problems Dermatitis Glaucoma Osteopenia Osteoarthritis Hypertension Obesity Hypothyroidism Sleep apnea Family History Medical History Relation Name Comments Diabetes Daughter Alcohol abuse Mother Cancer Mother Early Mother Cancer Sister Diabetes Sister Hypertension Sister Anesthesia problems Neg Hx Relation Name Status Comments Daughter Father Mother Sister Social History Tobacco Use Types Packs/Day Years [...] on file Legal Sex Female 6:37 AM HOSPITALITY SPECIALIST Gender Identity Female 09/05/2020 5:52 PM CDT Sexual Orientation Straight 09/05/2020 5: 52 PM CDT Occupation Industry Job Start Date Job End Date retired Not on file Not on file Not on file Obstetrics History Last Filed Vital Signs Vital Sign Reading Time Taken Comments Blood Pressure 141/57 01/02/2021 11:40 AM HOSPITALITY SPECIALIST Pulse 79 01/02/2021 11:40 AM HOSPITALITY SPECIALIST Temperature 36.8 C (98.2 F) 01/02/2021 11:40 AM HOSPITALITY SPECIALIST Respiratory Rate 16 01/02/2021 11:40 AM HOSPITALITY SPECIALIST Oxygen Saturation 97% 01/02/2021 11:40 AM HOSPITALITY SPECIALIST Inhaled Oxygen Concentration - - Weight 93.2 kg (205 lb 6.4 oz) 01/01/2021 11:30 AM CDT Height 157.5 cm (5' 2.01 ) 01/01/2021 11:30 AM C DT Body Mass Index 37.56 01/01/2021 11:30 AM CDT Plan of Treatment Health Maintenance Due Date Last Done Comments Albumin Creatinine Ratio, Urine 1942 Depression Screening 1942 Hemoglobin A1C 1942 Osteoporosis Screening-Bone Density Scan 1942 Dilated Eye Exam 1942 Foot Exam 1942 Lipid Panel 1942 DTaP/Tdap/Td Vaccine (1 - Tdap) 1953 Pneumococcal vaccine 65+ (1 of 2 - PCV) 1961 Zoster Vaccine (1 of 2) 01/05/1992 Well Visit 65+ 2007 eGFR 12/20/2021 12/20/2020 Fall Risk Assessment 01/02/2022 01/02/2021 Covid-19 Vaccine (3 - 2023-2 5 season) 2023 05/16/2020, 04/23/2020 Influenza Vaccine (#1) 2023 , 10/29/2019, 12/19/2018, Additional history exists Hepatitis B Screening Completed 12/07/2016, 017 Medical Devices Implanted Type Area Machinist Outside Device Identifier Shelf Expiration Date Model / Serial / Lot [employer] [id number] Cup Acetabular Bi-Mentum Od51mm Femoral Proximal Press Fit - Sna - [id number] Implanted:Qty: 1 on 12/31/2020 by Luciano Burnett MD at [facility] Other - see comments Left: Hip [employer] [id number] 06/25/2024 [id number] / NA / Description:Implant pause pe rformed [employer] 101 Actis 105mm Collar Hip 5 Standard Offset Stem Femoral - Sna - [id number] Implanted:Qty: 1 on 12/31/2020 by Luciano Burnett MD at [facility] Other - see comments Left: Hip [employer] [id number] 10/26/2030 101 / NA / [id number] Description:Implant pause pe rformed [employer] [id number] Liner Acetabular Bi-Mentum Polyethylene Od51mm Id28mm Femoral Proximal - Sna - [id number] Implanted:Qty: 1 on 12/31/2020 by Luciano Burnett MD at [facility] Other - see comments Left: Hip [employer] [id number] 12/26/2024 [id number] / NA / [id number] Description:Implant pause pe rformed [employer] [id number] Articul/Sridhar 28mm Cementless Hip +1.5mm 12/14 Taper Head Femoral Latex Free - Sna - [id number] Implanted:Qty: 1 on 12/31/2020 by Luciano Burnett MD at [facility] Other - see comments Left: Hip [employer] 07/26/2025 [id number] / NA / [id number] Description:Implant Procedures Procedure Name Priority Date/Time Associated Diagnosis Comments EGFR Routine 12/20/2020 12:05 PM CDT Primary osteoarthritis of left hip from Last 3 Months or Most Recently Relevant to Health Maintenance Results * eGFR (12/20/2020 12:05 PM CDT) eGFR 85 mL/min/1.7 3 m2 [facility] Comment: Interpretive Data Reference Interval Normal >/= [...] 5 PM CDT 12/20/2020 12:24 PM CDT us Luciano Burnett MD LAB BLOOD ORDERABLES Valerie l Result Performing Organization Address City/State/[facility] Co de Phone Number [facility] [address] [facility] [place] [address] from Last 3 Months or Most Recently Relevant to Health Maintenance Insurance MEDICARE SOLUTIONS [facility] MEDICARE [facility] MEDICARE Advance Directives For more information, please contact: [phone] * Full Code (Latest Code Status on File) Date Activated Date Inactivated Comments 12/31/2020 4:31 PM 01/02/2021 7:04 PM Care Teams Summer Analyst Relationship Specialty Start Date End Date Nhung Villalba MD [address] [place] [address] PCP - General Neurology 11/22/23
[2024-04-30 11:35] VITALS: BP 140/70; PULSE 75; RESP 19; TEMP 36.2; O2SAT 100
--- NOTE | 2024-04-30 11:45 | WPDANESEPPF ---
Anes - Initial Pre Proc Eval Procedure: Operation Date: 04/30/24 12:30 Proposed Procedures p Esophagogastroduodenoscopy - Ward Balderas MD Date/Time: 04/30/24 11:45 Surgeon: Ward Balderas MD Pre Op Diagnosis: Epigastric pain, Early satiety Patient Data Age: 84 Gender: F Height: 1.57 m Weight: 90.8 kg Last Vital Signs Temp 36.2 C L 04/30/24 11:35 Pulse 75 04/30/24 11:35 Resp 19 04/30/24 11:35 BP 140/70 04/30/24 11:35 Pulse Ox 100 04/30/24 11:35 O2 Del Method Room Air 04/30/24 11:35 Allergies Allergy/AdvReac Type Severity Reaction Status Date / Time amoxicillin Allergy Unknown VISUAL Verified 04/30/24 11:33 PROBLEMS Mushroom Allergy Mild Nausea and Uncoded 04/30/24 11:33 Vomiting Home Medications ?Medication ?Instructions ?Recorded ?Confirmed ?Type multivitamin (Daily Multi-Vitamin 1 tablet PO DAILY 01/15/19 04/30/24 History tablet) omega 1-fck-bom-fish oil 1,000 mg 1 cap PO DAILY 02/13/19 04/30/24 History (120 mg-180 mg) capsule (Fish Oil) bimatoprost 0.01 % eye drops 1 drp ophthalmic (eye) HS 12/24/19 04/30/24 History (Lumigan) ascorbic acid (vitamin C) 500 mg 500 mg PO DAILY 06/23/21 04/30/24 History capsule mecobalamin (vitamin B12) 500 mcg 1,000 mcg PO DAILY 08/28/22 04/30/24 History chewable tablet gabapentin 100 mg capsule 100 mg PO TID #90 caps 06/28/23 04/30/24 Rx triamterene 37.5 See Rx Instructions .Route 01/29/24 04/30/24 Rx mg-hydrochlorothiazide 25 mg tablet .COMPLEX #90 tabs cholecalciferol (vitamin D3) 25 25 mcg PO DAILY 03/21/24 04/30/24 History mcg (1,000 unit) capsule hydrocodone 5 mg-acetaminophen 325 1 tablet PO Q6H PRN pain #10 tabs 04/02/24 04/28/24 Rx mg tablet amlodipine 5 mg tablet See Rx Instructions .Route 04/07/24 04/30/24 Rx .COMPLEX #90 tabs Patient hx anesthesia problems: none Family hx anesthesia problems: none Results Review: All pre-operative results and documents have been reviewed as part of the pre-operative evaluation. [facility] Past Medical History Medical History [place] (hard of hearing) Hemoptysis Recurrent epistaxis Skull fracture Morbid (severe) obesity due to excess calories Benign essential HTN Coughing blood Screening for diabetes mellitus (DM) Sleep disturbance SINDHU (obstructive sleep apnea) Vaginal atrophy Screening for cervical cancer Nocturnal leg movements Nightmares Essential hypertension Chronic otitis externa of both ears Osteoarthritis of left hip BMI 38.0-38.9,adult Abnormal finding on ultrasound Obesity SINDHU (obstructive sleep apnea) Clear vaginal discharge High cholesterol Glaucoma Hypertension Thyroid disease Surgical History Surgical History S/P partial thyroidectomy History of hip surgery History of cholecystectomy H/O knee surgery left tka 2010, Dr. Gallegos Right tka, 2007, Dr. Gallegos S/P dilation and curettage History of tubal ligation Family History Family History Sibling Hypertension Family history of diabetes mellitus in first degree relative Diabetes mellitus Other Cerebrovascular accident Social History Social History Social History: Single Smoking packs per day: 0.5 Smoking cigarettes per day: 10.0 Years smoked: 2 Smoking pack-years: 1.00 Smoking status: Former smoker Tobacco type: cigarettes Second hand tobacco smoke exposure: No Alcohol intake: never Substance use: never Substance use type: does not use Do You Feel Safe in your Home?: Yes Lack of Transportation: No Lack of Food: Never True Current Housing: I Have Housing Concerned About Future Housing: No Difficulty Paying Gas/Electric Bills: No Difficulty Paying for Meds: No Currently Unemployed: YES Education: Don't Know Difficulty w/ Childcare or Family Care: No Living arrangements: alone Occupation/Education: retired Gender identity (if verbalized by the patient): Female Sexual Orientation (if Verbalized by the Patient): Straight or Heterosexual Spiritual care concerns: No Agree to blood products: Yes Anes - Eval Final PreProcedure Day of Procedure 04/30/24 11:45 Patient weight: obese Heart: regular rate and rhythm Lungs: clear to auscultation Airway: Mallampati scale class II Neurological: alert and oriented Last oral intake: 2 hours (water) ASA classification: III Emergent: no Anesthetic plan: proceed Anesthesia type and monitoring: general GIVS and standard monitoring Results Review: All pre-operative results and documents have been reviewed as part of the pre-operative evaluation. Informed Consent: The patient's anesthetic plan and its attendant risks and benefits were discussed with the patient/family/POA. Questions were solicited and answers provided to the satisfaction of the patient/family/POA.
[2024-04-30] MEDS: LACTATED RINGERS 1,000 ML 150 ML IV CONT (12:04)
--- NOTE | 2024-04-30 12:11 | PM.HPGS ---
History of Present Illness History of Present Illness Consent: Risks, benefits, and alternatives have been discussed and questions answered. Patient agrees to proceed with procedure. Chief complaint: Epigastric pain, Early satiety Narrative: Ping Espana is a 84 year old female here for first egd, has lack of appetite and weight loss, no nausea or abdominal pain. Review of Systems Review of Systems: All systems reviewed & are unremarkable except as noted in HPI and below PMFSH Past Medical History Medical History (Updated 04/30/24 @ 12:12 by Ward Balderas MD) Lack of appetite [place] (hard of hearing) Hemoptysis Recurrent epistaxis Skull fracture Morbid (severe) obesity due to excess calories Benign essential HTN Coughing blood Screening for diabetes mellitus (DM) Sleep disturbance SINDHU (obstructive sleep apnea) Vaginal atrophy Screening for cervical cancer Nocturnal leg movements Nightmares Essential hypertension Chronic otitis externa of both ears Osteoarthritis of left hip BMI 38.0-38.9,adult Abnormal finding on ultrasound Obesity SINDHU (obstructive sleep apnea) Clear vaginal discharge High cholesterol Glaucoma Hypertension Thyroid disease Surgical History Surgical History S/P partial thyroidectomy History of hip surgery History of cholecystectomy H/O knee surgery left tka 2010, Dr. Gallegos Right tka, 2007, Dr. Gallegos S/P dilation and curettage History of tubal ligation Family History Family History Sibling Hypertension Family history of diabetes mellitus in first degree relative Diabetes mellitus Other Cerebrovascular accident Social History Social History Social History: Single Smoking packs per day: 0.5 Smoking cigarettes per day: 10.0 Years smoked: 2 Smoking pack-years: 1.00 Smoking status: Former smoker Tobacco type: cigarettes Second hand tobacco smoke exposure: No Alcohol intake: never Substance use: never Substance use type: does not use Do You Feel Safe in your Home?: Yes Lack of Transportation: No Lack of Food: Never True Current Housing: I Have Housing Concerned About Future Housing: No Difficulty Paying Gas/Electric Bills: No Difficulty Paying for Meds: No Currently Unemployed: YES Education: Don't Know Difficulty w/ Childcare or Family Care: No Living arrangements: alone Occupation/Education: retired Gender identity (if verbalized by the patient): Female Sexual Orientation (if Verbalized by the Patient): Straight or Heterosexual Spiritual care concerns: No Agree to blood products: Yes Meds Home Medications and Allergies Home Medications ?Medication ?Instructions ?Recorded ?Confirmed ?Type multivitamin (Daily Multi-Vitamin 1 tablet PO DAILY 01/15/19 04/30/24 History tablet) omega 1-ygl-hxh-fish oil 1,000 mg 1 cap PO DAILY 02/13/19 04/30/24 History (120 mg-180 mg) capsule (Fish Oil) bimatoprost 0.01 % eye drops 1 drp ophthalmic (eye) HS 12/24/19 04/30/24 History (Lumigan) ascorbic acid (vitamin C) 500 mg 500 mg PO DAILY 06/23/21 04/30/24 History capsule mecobalamin (vitamin B12) 500 mcg 1,000 mcg PO DAILY 08/28/22 04/30/24 History chewable tablet gabapentin 100 mg capsule 100 mg PO TID #90 caps 06/28/23 04/30/24 Rx triamterene 37.5 See Rx Instructions .Route 01/29/24 04/30/24 Rx mg-hydrochlorothiazide 25 mg tablet .COMPLEX #90 tabs cholecalciferol (vitamin D3) 25 25 mcg PO DAILY 03/21/24 04/30/24 History mcg (1,000 unit) capsule hydrocodone 5 mg-acetaminophen 325 1 tablet PO Q6H PRN pain #10 tabs 04/02/24 04/28/24 Rx mg tablet amlodipine 5 mg tablet See Rx Instructions .Route 04/07/24 04/30/24 Rx .COMPLEX #90 tabs Allergies Allergy/AdvReac Type Severity Reaction Status Date / Time amoxicillin Allergy Unknown VISUAL Verified 04/30/24 11:33 PROBLEMS Mushroom Allergy Mild Nausea and Uncoded 04/30/24 11:33 Vomiting Vital Signs Vital Signs - 24 hr 04/30/24 11:35 Temperature 97.2 F L Pulse Rate 75 Respiratory Rate 19 Blood Pressure 140/70 Pulse Oximetry 100 Oxygen Delivery Room Air Exam Const: General: comfortable and no acute distress HENMT: Face/Nose/Sinus: Normal nares present Eyes: General: appearance normal, both eyes and all related structures Neck: Neck: no JVD Resp: Auscultation: clear to auscultation bilaterally Cardio: Rate: regular rate Rhythm: regular rhythm GI: Inspection: non-distended GI Palp: Yes Soft to palpation Skin: General skin exam: normal color Neuro: Speech: normal speech Extrem: General: normal to inspection Psych: Mental Status: mental status grossly normal Assessment and Plan Assessment and plan (1) Lack of appetite: Code(s): R63.0 - Anorexia Status: Acute Assessment and Plan: egd with bx
[2024-04-30 12:25] VITALS: BP 104/44; PULSE 63; RESP 18; O2SAT 99
[2024-04-30 12:35] VITALS: BP 109/53; PULSE 63; RESP 20; O2SAT 99
[2024-04-30 12:45] VITALS: BP 127/64; PULSE 62; RESP 24; O2SAT 99
== END 2024-04-30 12:55 | disposition home or self-care (01) ==
PROVIDERS: PCP Family Medicine; Referring Provider Family Medicine; Visit Provider Internal Medicine Gastroenterology
PROC: 0DJ08ZZ Inspection of Upper Intestinal Tract, Via Natural or Artificial Opening Endoscopic (ICD-10-PCS; CPT 43239; principal; 2024-04-30 12:30)
DX: K31.89 Other diseases of stomach and duodenum (principal); K63.89 Other specified diseases of intestine; K29.70 Gastritis, unspecified, without bleeding; K44.9 Diaphragmatic hernia without obstruction or gangrene; I10 Essential (primary) hypertension; G47.33 Obstructive sleep apnea (adult) (pediatric); M16.12 Unilateral primary osteoarthritis, left hip; E78.00 Pure hypercholesterolemia, unspecified; E07.9 Disorder of thyroid, unspecified; E66.9 Obesity, unspecified; Z68.36 Body mass index [BMI] 36.0-36.9, adult; Z79.891 Long term (current) use of opiate analgesic; Z98.890 Other specified postprocedural states; Z90.49 Acquired absence of other specified parts of digestive tract; Z98.51 Tubal ligation status; Z87.891 Personal history of nicotine dependence; Z82.49 Family history of ischemic heart disease and other diseases of the circulatory system
CPT/HCPCS: 43239; 88305; J2003; J2704; J7120

== ENCOUNTER 2024-05-13 11:01 | Outpatient (CLI) | payer MEDICARE, SELFPAY ==
--- NOTE | ~2024-05-13 | DEXA_ITS ---
Bone Density Report Name: NAEYLI PATTERSON Age: 84 Sex: Female Ethnicity: Black Date of : 1940 Indication: postmenopausal; screening for osteoporosis; parental hip fracture; height loss; cancer; Referring Provider: DEANNA HOYT Study: Bone densitometry was performed. Exam Date: May 13, 2024 Accession number: [id number] Bone Density: Region BMD T-score Z-score Classification AP Spine(L1-L4) 1.180 1.2 3.3 Normal Femoral Neck (Right) 0.821 -0.2 1.0 Normal Total Hip (Right) 0.933 -0.1 1.0 Normal World Health Organization criteria for BMD impression classify patients as: Normal (T-score at or above -1.0), Osteopenia (T-score between -1.0 and -2.5), or Osteoporosis (T-score at or below -2.5). 10-year Fracture Risk: FRAX not reported because: All T-scores for Spine Total, Hip Total, Femoral Neck at or above -1.0 Clinical Information Provided by Patient: Parent has had a hip fracture Has used the following medications: Vitamin D Has the following medical conditions: Cancer Patient maximum height was 64 Menopause Age: 54 No regular weight bearing exercise Does not regularly consume dairy products Drinks caffeinated beverages Onset of menses at age 14 Number of children 1 Impression: The patient has normal bone mass. The patient has risk factors, including: parental hip fracture. Discussion: BONE DENSITY IS ABOVE THE MINIMUM DESIRABLE LEVEL AT ALL SKELETAL SITES TESTED. This patient?s bone mineral density is above the minimum desirable level (T-score -1.0 or better) at all sites measured. The patient should follow a healthful lifestyle (good nutrition with adequate calcium and vitamin D, and appropriate weight-bearing exercise). Follow-Up: Consider repeating this study in 5 years or sooner if there is some new clinical indication. Reported by: KEEGAN on 05/13/2024 11:41:00 AM. Reviewed, dictated and finalized at location [facility] [place]
--- OUTSIDE RECORDS SUMMARY | 2024-05-13 12:37 | XMS_ITS | Clinical Summary ---
Author Organization [facility] Address [address] [place] [address] [place] [address] Care Team Providers Care Repair Manager Name Role Phone Unavailable Primary Care Provider [...] Department Care Team Description 04/25/2024 12:30 PM PHYSICAL THER Office Visit [facility] Oncology and Hematology - Yous[address] [address] Octavoi Wilkerson MD Osteopenia of multiple sites (Primary Dx) 04/16/2024 External Device Data [facility] ABSTRACTION Provider, Abstract 03/26/2024 External Device Data [facility] ABSTRACTION Provider, Abstract 03/20/2024 External Device Data [facility] ABSTRACTION Provider, Abstract 03/11/2024 Chart Note [facility] Emergency Department - [address] [address] Murtaza Rouse MD from Last [...] Comments Blood Pressure 145/74 04/25/2024 12:25 PM PHYSICAL THER Pulse 80 04/25/2024 12:21 PM PHYSICAL THER Temperature 35.7 C (96.3 F) 04/25/2024 12:21 PM PHYSICAL THER Respiratory Rate 15 04/25/2024 12:21 PM PHYSICAL THER Oxygen Saturation 95% 04/25/2024 12:21 PM PHYSICAL THER Inhaled Oxygen Concentration - - Weight 91 kg (200 lb 9.6 oz) 04/25/2024 12:21 PM PHYSICAL THER Height 154.9 cm (5' 1 ) 01/28/2024 1:32 PM PHYSICAL THER Body Mass Index 37.9 01/28/2024 1:32 PM PHYSICAL THER Plan of Treatment Upcoming Encounters Date Type Department Care Team (Late st Contact Info) Description 05/30/2024 11:00 AM CDT Office Visit [facility] Oncology and Hematology - Yousif [address] [facility] [address] [place] [address] Octavio Wilkerson MD [address] [facility] [address] [place] [address] Health Maintenance Due Date Last [...]
--- OUTSIDE RECORDS SUMMARY | 2024-05-13 12:37 | XMS_ITS | Continuity of Care Document ---
Author Organization [facility] Address [address] [place] [address] Phone Care Team Providers Care Director Of Partnerships Name Role Phone Doreen Banuelos MD Unavailable Unavailabl e Advance Directives Directive Yes / No Effective Date File Name No Information Encounters Encounter Description Practice Location Reason(s) For Visit Diagnoses Date Provider Providers Copied on Encounter [facility], [address], [place], [place], [address] , [place] tel: [phone] Gaby No Information 3 Throw[address]ah. [address] [place], [place], [address]. tel:[phone] [facility], [address], [place], [place], [address] , [place] tel: [phone] Watson GYNECOLOGIC EXAMINATIONSCREEN MAL NEOP-CERVIXGENERAL OSTEOARTHROSISDVRTC LO COLON W/O HMRHGOTHER ATOPIC DERMATITISROUTINE MEDICAL EXAMSCREEN MAL NEOP-RECTUMACUTE GASTRTIS W/O HMRHG 3 Banuelos Doreen. [address] [place], [place], [address]. tel:[phone] [facility], [address], [place], [place], [address] , [place] tel: [phone] Gaby VACCINATION FOR [place]MD[facility]YDD[facility] SUR[facility]Y 3 Banuelos Doreen. [address] [place], [place], [address]. tel:[phone] [facility], [address], [place], [place], [address] , tel: [phone] Gaby SYMPT FEM CLIMACT STATEHORMONE REPLACE POSTMENO 8200 2 Banuelos Doreen. [address] [place], [place], [address]. tel:[phone] [facility], [address], [place], [place], [address] , tel: [phone] Gaby OSTEOPOROSIS NOSSCREEN MAL NEOP OTH SITE 0200 2 Banuelos Doreen. [address] [place], [address]. tel:[phone] [facility], [address], [place], [place], [address] , tel: [phone] Gaby OTITIS MEDIA NOSACUTE URI NOS 0200 2 [employer]. [address] [place] [address], [address], . [facility], [address], [place], [place], [address] , tel: [phone] Gaby GLAUCOMA NOSBUNIONPREOP CARDIOVSCLR EXAM 4 1 Banuelos Doreen. [address] [place], [address]. tel:[phone] Family History Family Member Type Diagnosis Age At Onset No Information Immunizations Vaccine Date Status Comments 02652 - TD administered Source: Source Unspecified Payers [...]
--- OUTSIDE RECORDS SUMMARY | 2024-05-13 12:37 | XMS_ITS | CONTINUITY OF CARE DOCUMENT ---
Author Name soham jackybarb Address Unknown Organization [facility] Address [address] [place] [address] Phone [phone] Care Team Providers Care Welt Sewer Name Role Phone Minh LINARES, Sony Unavailable SUSY DAVALOS Unavailable [phone] JOAN LINARES, GIANFRANCO Unavailable [phone] PROBLEMS Condition Status Date Provider Notes CVA active Sony Wilkinson MD HTN-09/04 ECHO NL EF 60 active ? Troy Larsen RN [id number] DR SULLIVAN active 8 Sony Wilkinson MD OBESITY active Sony Wilkinson MD ENCOUNTERS Date Type Provider Location Encounter Diagnosis - In-person encounter Office Visit Sony Wilkinson MD [place] [facility] - In-person encounter Office Visit Sony Wilkinson MD [place] [facility] HYPERCHOLESTEROLEM IA0PER DR SULLIVAN - In-person encounter Office Visit Sony Wilkinson MD [place] [facility] - In-person encounter Office Visit Sony Wilkinson MD [place] [facility] CVAHTN-09/04 ECHO NL EF 60HYPERCHOLESTEROL [id number] DR SULLIVANOBESITY VITAL SIGNS Date Observation Value Provider blood pressure, diastolic 72 mm[Hg] Rhoda seph [place] blood pressure, systolic 126 mm[Hg] Durga eph [facility] pulse rate 71 /min [facility] oxygen saturation, oximetry 99 % [facility] respiratory rate E&M 16 /min [facility] weight E&M 189 [lb_av] [facility] blood pressure, diastolic, left arm 78 mm [Hg] [facility] blood pressure, systolic, left arm 118 mm [Hg] [facility] blood pressure, diastolic, right arm 80 m m[Hg] [facility] blood pressure, systolic, right arm 121 m m[Hg] [facility] blood pressure, diastolic 80 mm[Hg] [facility] [place] blood pressure, systolic 121 mm[Hg] [facility] pulse rate 81 /min [facility] oxygen saturation, oximetry 93 % [facility] respiratory rate E&M 16 /min [facility] weight E&M 208 [lb_av] [facility] blood pressure, diastolic 79 mm[Hg] [...] a smoker 10 years or m ore [facility] MENTAL STATUS Date Observation Value Provider assessment [...] Payer name Policy type / Coverage type [place] [address] [employer] insurance [place] [id number] [place] MED[place] Medicare [id number] TREATMENT PLAN Date Name Performer Yearly Follow-up: [...] ..... One tab. daily Orders: E KG ([id number]) Sony Wilkinson MD Yearly Follow-up: H er [...]
--- OUTSIDE RECORDS SUMMARY | 2024-05-13 12:37 | XMS_ITS | Encounter Summary ---
Author Organization [facility] Address [address] [place] [address] Care Team Providers Care Directory Compiler Name Role Phone Mahi Gomez MD Primary Care Provider [phone] Nhung Villalba MD Primary Care Provider [phone] Reason for Referral * Diagnostic Imaging (Routine) - Authorized Specialty Diagnoses / Procedures Referred By Contac t Referred To Contact Diagnoses Research subject Procedures NM Radiopharmaceutical Distribution SPECT (1 area, 1 day) Nhung Villalba MD [address] [place] [address] Phone: tel: fax: [address] [address] Referral ID Status Reason Start Date Expiration Date V isits Requested Visits Authorized [id number] Authorized 10/12/2023 11/10/2024 3 3 Encounter Details Date Type Department Care Team (Late st Contact Info) Description 10/12/2023 Orders Only Neurology Nhung Villalba MD [address] [place], [place] [id number] Research subject (Primary Dx) Social History Tobacco [...] on file Legal Sex Female 6:37 AM COB SAWYER Gender Identity Female 09/05/2020 5:52 PM CDT [...] research purposes only. If needed, contact the investigator operator, Nhung Villalba MD, for additional details. Electronically [...] research purposes only. If needed, contact the investigator operator, Nhung Villalba MD, for additional details. Electronically signed by: Dk Weston M.D. us Nhung Villalba MD IMG NM PROCEDURES Final Result documented in this encounter Visit Diagnoses Diagnosis Research subject- Primary Research subject documented in this encounter Care Teams Directory Compiler Relationship Specialty Start Date End Date Mahi Gomez MD [facility] [place] [address] PCP - General 11/24/10 11/21/23 Nhung Villalba MD [address] [facility] [address] [place] [address] PCP - General Neurology 11/22/23 documented as of this encounter
--- OUTSIDE RECORDS SUMMARY | 2024-05-13 12:37 | XMS_ITS | Clinical Summary ---
Author Organization [facility] Address [address] [place] [address] Care Team Providers Care Regional Sales Consultant Name Role Phone Nhung Villalba MD Primary Care Provider [phone] Allergies Active Allergy Reactions Criticality Noted Date [...] on file Legal Sex Female 6:37 AM GOVERNMENT CLERK Gender Identity Female 09/05/2020 5:52 PM CDT Sexual Orientation Straight 09/05/2020 5: 52 PM CDT Occupation Industry Job Start Date Job End Date retired Not on file Not on file Not on file Obstetrics History Last Filed Vital Signs Vital Sign Reading Time Taken Comments Blood Pressure 141/57 01/02/2021 11:40 AM GOVERNMENT CLERK Pulse 79 01/02/2021 11:40 AM GOVERNMENT CLERK Temperature 36.8 C (98.2 F) 01/02/2021 11:40 AM GOVERNMENT CLERK Respiratory Rate 16 01/02/2021 11:40 AM GOVERNMENT CLERK Oxygen Saturation 97% 01/02/2021 11:40 AM GOVERNMENT CLERK Inhaled Oxygen Concentration - - Weight 93.2 [...] 12/07/2016, 017 Medical Devices Implanted Type Area Tower Observer Device Identifier Shelf Expiration Date Model / Serial / Lot Depuy Orthopa[employer] Inc [id number] Cup Acetabular Bi-Mentum Od51mm Femoral Proximal Press Fit - Sna - [id number] Implanted:Qty: 1 on 12/31/2020 by Luciano Burnett MD at [facility] Other - see comments Left: Hip [employer] [id number] 06/25/2024 [id number] / NA / Description:Implant pause pe rformed [employer] 101 Actis 105mm Collar Hip 5 Standard Offset Stem Femoral - Sna - [id number] Implanted:Qty: 1 on 12/31/2020 by Luciano Burnett MD at [facility] Other - see comments Left: Hip [employer] [id number] 10/26/2030 101 / NA / [id number] Description:Implant pause pe rformed [employer] [id number] Liner Acetabular Bi-Mentum Polyethylene Od51mm Id28mm Femoral Proximal - Sna - [id number] Implanted:Qty: 1 on 12/31/2020 by Luciano Burnett MD at [facility] Other - see comments Left: Hip [employer] [id number] 12/26/2024 [id number] / NA / [id number] Description:Implant pause pe rformed Depuy [employer] Inc [id number] Articul/Sridhar 28mm Cementless Hip +1.5mm 12/14 Taper Head Femoral Latex Free - Sna - [id number] Implanted:Qty: 1 on 12/31/2020 by Luciano Burnett MD at [facility] Other - see comments Left: Hip [employer] 07/26/2025 [id number] / NA / [id number] Description:Implant Procedures Procedure Name Priority Date/Time Associated Diagnosis Comments EGFR Routine 12/20/2020 12:05 PM CDT Primary osteoarthritis of left hip from Last 3 Months or Most Recently Relevant to Health Maintenance Results * eGFR (12/20/2020 12:05 PM CDT) eGFR 85 mL/min/1.7 3 m2 [facility] Comment: Interpretive Data Reference Interval Normal >/= [...] ORDERABLES Valerie l Result Performing Organization Address City/State/[facility] Co de Phone Number [facility] [address] [facility] [place] [address] from Last 3 Months or Most Recently Relevant to Health Maintenance Insurance MEDICARE SOLUTIONS [facility] MEDIC[facility] Address: [address] [address] [place] [address] [facility] MEDICARE [facility] MED[facility] Advance Directives For more information, please contact: [phone] * Full Code (Latest Code Status on File) Date Activated Date Inactivated Comments 12/31/2020 4:31 PM 01/02/2021 7:04 PM Care Teams Regional Sales Consultant Relationship Specialty Start Date End Date Nhung Villalba MD [address] [place] [address] PCP - General Neurology 11/22/23
--- OUTSIDE RECORDS SUMMARY | 2024-05-13 12:37 | XMS_ITS | Referral Summary ---
Author Organization [facility] Address [address] [place] [address] Care Team Providers Care Debrander Name Role Phone Nhung Villalba MD Primary Care Provider [phone] Allergies Active Allergy Reactions Criticality Noted Date [...] on file Legal Sex Female 6:37 AM SHELL SIEVE OPERATOR Gender Identity Female 09/05/2020 5:52 PM CDT Sexual Orientation Straight 09/05/2020 5: 52 PM CDT Occupation Industry Job Start Date Job End Date retired Not on file Not on file Not on file Last Filed Vital Signs Vital Sign Reading Time Taken Comments Blood Pressure 141/57 01/02/2021 11:40 AM SHELL SIEVE OPERATOR Pulse 79 01/02/2021 11:40 AM SHELL SIEVE OPERATOR Temperature 36.8 C (98.2 F) 01/02/2021 11:40 AM SHELL SIEVE OPERATOR Respiratory Rate 16 01/02/2021 11:40 AM SHELL SIEVE OPERATOR Oxygen Saturation 97% 01/02/2021 11:40 AM SHELL SIEVE OPERATOR Inhaled Oxygen Concentration - - Weight 93.2 kg (205 lb 6.4 oz) 01/01/2021 11:30 AM CDT Height 157.5 cm (5' 2.01 ) 01/01/2021 11:30 AM C DT Body Mass Index 37.56 01/01/2021 11:30 AM CDT Plan of Treatment Not on file Medical Devices Implanted Type Area Hospice Fellow Device Identifier Shelf Expiration Date Model / Serial / Lot Depuy [employer]opa[employer] Inc [id number] Cup Acetabular Bi-Mentum Od51mm Femoral Proximal Press Fit - Sna - [id number] Implanted:Qty: 1 on 12/31/2020 by Luciano Burnett MD at [facility] Other - see comments Left: Hip [employer] [id number] 06/25/2024 [id number] / NA / Description:Implant pause pe rformed [employer] Actis 105mm Collar Hip 5 Standard Offset Stem Femoral - Sna - [id number] Implanted:Qty: 1 on 12/31/2020 by Luciano Burnett MD at [facility] Other - see comments Left: Hip [employer] [id number] 10/26/2030 / NA / [id number] Description:Implant pause pe rformed [employer]uy [employer] [id number] Liner Acetabular Bi-Mentum Polyethylene Od51mm Id28mm Femoral Proximal - Sna - [id number] Implanted:Qty: 1 on 12/31/2020 by Luciano Burnett MD at [facility] Other - see comments Left: Hip [employer] [id number] 12/26/2024 [id number] / NA / [id number] Description:Implant pause pe rformed [employer] [id number] Articul/Sridhar 28mm Cementless Hip +1.5mm 12/14 Taper Head Femoral Latex Free - Sna - [id number] Implanted:Qty: 1 on 12/31/2020 by Luciano Burnett MD at [facility] Other - see comments Left: Hip [employer] 07/26/2025 [id number] / NA / [id number] Description:Implant Procedures Procedure Name Priority Date/Time Associated [...] MD LAB BLOOD ORDERABLES Valerie crocker Result [facility] [address] [facility]. Department [place] [address] from Last 3 Months or Most Recently Relevant to Health Maintenance Insurance MEDICARE SOLUTIONS [employer] MEDICARE [facility] MEDICARE Advance Directives For more information, please contact: [phone] * Full Code (Latest Code Status on File) Date Activated Date Inactivated Comments 12/31/2020 4:31 PM 01/02/2021 7:04 PM Care Teams Debrander Relationship Specialty Start Date End Date Nhung Villalba MD [address] [place] [address] PCP - General Neurology 11/22/23
== END 2024-05-13 11:02 | disposition home or self-care (01) ==
LOC: ANHIMG 11:01
PROVIDERS: PCP Family Medicine; Visit Provider Internal Medicine Hematology & Oncology
DX: M85.89 Other specified disorders of bone density and structure, multiple sites (principal)
CPT/HCPCS: 77080

== ENCOUNTER 2024-09-05 10:32 | Outpatient (CLI) | payer MEDICARE, SELFPAY ==
--- OUTSIDE RECORDS SUMMARY | 2024-09-05 10:36 | XMS_ITS | Clinical Summary ---
Author Organization [facility] Address [address] [place] [address] [place] [address] Care Team Providers Care Wiping Rag Washer Name Role Phone Unavailable Primary Care Provider [...] capsule Take 100 mg by mouth. Active anastrozole (Arimidex) 1 mg tablet Take 1 Tablet (1 mg) by mouth daily. 90 Tablet 3 5 Active Active Problems No known active problems Encounters Date Type Department Care Team Description 08/13/2024 External Device Data [facility] ABSTRACTION Provider, Abstract 08/13/2024 External Device Data [facility] ABSTRACTION Provider, Abstract 07/22/2024 External Device Data [facility] ABSTRACTION Provider, Abstract 07/17/2024 External Device Data [facility] ABSTRACTION Provider, Abstract 07/16/2024 External Device Data [facility] ABSTRACTION Provider, Abstract 07/01/2024 External Device Data [facility] ABSTRACTION Provider, Abstract from Last 3 Months Immunizations Immunization Administration [...] Sign Reading Time Taken Comments Blood Pressure 117/66 05/30/2024 11:14 AM CDT Pulse 72 05/30/2024 11:14 AM CDT Temperature 36.4 C (97.5 F) 05/30/2024 11:14 AM CDT Respiratory Rate 15 05/30/2024 11:14 AM CDT Oxygen Saturation 93% 05/30/2024 11:14 AM CDT Inhaled Oxygen Concentration - - Weight 90.1 kg (198 lb 9.6 oz) 05/30/2024 11:14 AM CDT Height 154.9 cm (5' 1) 01/28/2024 1:32 PM PECAN PICKER Body Mass Index 37.53 01/28/2024 1:32 PM PECAN PICKER Plan of Treatment Upcoming Encounters Date Type Department Care Team (Late st Contact Info) Description 09/05/2024 11:15 AM CDT Office Visit [facility] Oncology and Hematology - Yousif [address] [facility] [address] [place] [address] Octavio Wilkerson MD [address] [facility] [address] [place] [address] Health Maintenance Due Date Last [...] ) (1 - 1-dose 75+ series) 2017 Medicare [place] ([place]) Preventative Visit/Annual Wellness Visit 02/27/2024 INFLUENZA VACCINE (#1) 2024 2, 10/29/2019, 12/19/2018, Additional history exists Insurance RX OPT[employer] RX Member Subscriber Plan / Payer (Ef fective 2021-Present) Name:Ping [place] Relation to Subscriber:Self Name:Ping [place] Subscriber ID:Not on file Payer ID:Not on file Group ID:[id number] Type:RX Medicare Part D Address: DARLENE BAZAN AETNA PPO MCR
--- OUTSIDE RECORDS SUMMARY | 2024-09-05 10:36 | XMS_ITS | Encounter Summary ---
Author Organization [facility] Address [address] [place] [address] Care Team Providers Care Flexboard Operator Name Role Phone Mahi Gomez MD Primary Care Provider [phone] Nhung Villalba MD Primary Care Provider [phone] Reason for Referral * Diagnostic Imaging (Routine) - Authorized Specialty Diagnoses / Procedures Referred By Contac t Referred To Contact Diagnoses Research subject Procedures NM Radiopharmaceutical Distribution SPECT (1 area, 1 day) Nhung Villalba MD [address] [place] [address] Phone: tel: fax: [address] [address] Referral ID Status Reason Start Date Expiration Date V isits Requested Visits Authorized [id number] Authorized 10/12/2023 11/10/2024 3 3 Encounter Details Date Type Department Care Team (Late st Contact Info) Description 10/12/2023 Orders Only Neurology Nhung Villalba MD [address] [place], [place] [phone] Research subject (Primary Dx) Social History Tobacco [...] on file Legal Sex Female 6:37 AM LIVE IN COMPANION Gender Identity Female 09/05/2020 5:52 PM CDT [...] research purposes only. If needed, contact the managing principal, Nhung Villalab MD, for additional details. Electronically signed by: [...] research purposes only. If needed, contact the managing principal, Nhung Villalba MD, for additional details. Electronically signed by: Dk Weston M.D. us Nhung Villalba MD IMG NM PROCEDURES Final Result documented in this encounter Visit Diagnoses Diagnosis Research subject- Primary Research subject documented in this encounter Care Teams Flexboard Operator Relationship Specialty Start Date End Date Mahi Gomez MD [facility] [place] [address] PCP - General 11/24/10 11/21/23 Nhung Villalba MD [address] [facility] [address] [place] [address] PCP - General Neurology 11/22/23 documented as of this encounter
--- OUTSIDE RECORDS SUMMARY | 2024-09-05 10:36 | XMS_ITS | Referral Summary ---
Author Organization [facility] Address [address] [place] [address] Care Team Providers Care Shingle Bolt Cutter Name Role Phone Nhung Villalba MD Primary Care Provider [phone] Allergies Active Allergy Reactions Criticality Noted Date [...] on file Legal Sex Female 6:37 AM HAND DEVELOPER Gender Identity Female 09/05/2020 5:52 PM CDT Sexual Orientation Straight 09/05/2020 5: 52 PM CDT Occupation Industry Job Start Date Job End Date retired Not on file Not on file Not on file Last Filed Vital Signs Vital Sign Reading Time Taken Comments Blood Pressure 141/57 01/02/2021 11:40 AM HAND DEVELOPER Pulse 79 01/02/2021 11:40 AM HAND DEVELOPER Temperature 36.8 C (98.2 F) 01/02/2021 11:40 AM HAND DEVELOPER Respiratory Rate 16 01/02/2021 11:40 AM HAND DEVELOPER Oxygen Saturation 97% 01/02/2021 11:40 AM HAND DEVELOPER Inhaled Oxygen Concentration - - Weight 93.2 kg (205 lb 6.4 oz) 01/01/2021 11:30 AM CDT Height 157.5 cm (5' 2.01) 01/01/2021 11:30 AM C DT Body Mass Index 37.56 01/01/2021 11:30 AM CDT Plan of Treatment Not on file Medical Devices Implanted Type Area Continuous Miner Device Identifier Shelf Expiration Date Model / Serial / Lot Depuy Orthopa[employer] Inc [id number] Cup Acetabular Bi-Mentum Od51mm Femoral Proximal Press Fit - Sna - [id number] Implanted:Qty: 1 on 12/31/2020 by Luciano Burnett MD at [facility] Other - see comments Left: Hip [employer] [id number] 06/25/2024 [id number] / NA / Description:Implant pause pe rformed Depuy [employer] Actis 105mm Collar Hip 5 Standard Offset Stem Femoral - Sna - [id number] Implanted:Qty: 1 on 12/31/2020 by Luciano Burnett MD at [facility] Other - see comments Left: Hip [employer] [id number] 10/26/2030 / NA / [id number] Description:Implant pause pe rformed [employer]uy [employer] Inc [id number] Liner Acetabular Bi-Mentum Polyethylene Od51mm Id28mm Femoral Proximal - Sna - [id number] Implanted:Qty: 1 on 12/31/2020 by Luciano Burnett MD at [facility] Other - see comments Left: Hip [employer] [id number] 12/26/2024 [id number] / NA / [id number] Description:Implant pause pe rformed [employer] Inc [id number] Articul/Sridhar 28mm Cementless Hip +1.5mm 12/14 Taper Head Femoral Latex Free - Sna - [id number] Implanted:Qty: 1 on 12/31/2020 by Luciano Burnett MD at [facility] Other - see comments Left: Hip [employer] 07/26/2025 [id number] / NA / [id number] Description:Implant Procedures Procedure Name Priority Date/Time Associated [...] MD LAB BLOOD ORDERABLES Valerie crocker Result [facility] [address] [facility]. [place] [address] from Last 3 Months or Most Recently Relevant to Health Maintenance Insurance UHC MEDICARE ADVANTAGE [facility] Address: [facility] [address] [place] [address] [facility] Advance Directives For more information, please contact: [phone] * Full Code (Latest Code Status on File) Date Activated Date Inactivated Comments 12/31/2020 4:31 PM 01/02/2021 7:04 PM Care Teams Shingle Bolt Cutter Relationship Specialty Start Date End Date Nhung Villalba MD [address] [place] [address] PCP - General Neurology 11/22/23
--- OUTSIDE RECORDS SUMMARY | 2024-09-05 10:36 | XMS_ITS | Clinical Summary ---
Author Organization [facility] Address [address] [place] [address] Care Team Providers Care Gear Hobber Name Role Phone Nhung Villalba MD Primary Care Provider [phone] Allergies Active Allergy Reactions Criticality Noted Date [...] on file Legal Sex Female 6:37 AM RIB KNITTER Gender Identity Female 09/05/2020 5:52 PM CDT Sexual Orientation Straight 09/05/2020 5: 52 PM CDT Occupation Industry Job Start Date Job End Date retired Not on file Not on file Not on file Obstetrics History Last Filed Vital Signs Vital Sign Reading Time Taken Comments Blood Pressure 141/57 01/02/2021 11:40 AM RIB KNITTER Pulse 79 01/02/2021 11:40 AM RIB KNITTER Temperature 36.8 C (98.2 F) 01/02/2021 11:40 AM RIB KNITTER Respiratory Rate 16 01/02/2021 11:40 AM RIB KNITTER Oxygen Saturation 97% 01/02/2021 11:40 AM RIB KNITTER Inhaled Oxygen Concentration - - Weight 93.2 [...] 5 season) 2023 05/16/2020, 04/23/2020 Influenza Vaccine (Season Ended) 2024 12/08/2020, 10/29/2019, 12/19/2018, Additional history exists Hepatitis B Screening Completed 12/07/2016, 017 Medical Devices Implanted Type Area Truck Hop Device Identifier Shelf Expiration Date Model / Serial / Lot Depuy Orthopa[employer] Inc [id number] Cup Acetabular Bi-Mentum Od51mm Femoral Proximal Press Fit - Sna - [id number] Implanted:Qty: 1 on 12/31/2020 by Luciano Burnett MD at [facility] Other - see comments Left: Hip [employer] [id number] 06/25/2024 [id number] / NA / Description:Implant pause pe rformed [employer] 101 Actis 105mm Collar Hip 5 Standard Offset Stem Femoral - Sna - [id number] Implanted:Qty: 1 on 12/31/2020 by Luciano Burnett MD at [facility] Other - see comments Left: Hip [employer] [id number] 10/26/2030 101 / NA / [id number] Description:Implant pause pe rformed [employer] [id number] Liner Acetabular Bi-Mentum Polyethylene Od51mm Id28mm Femoral Proximal - Sna - [id number] Implanted:Qty: 1 on 12/31/2020 by Luciano Burnett MD at [facility] Other - see comments Left: Hip [employer] [id number] 12/26/2024 [id number] / NA / [id number] Description:Implant pause pe rformed [employer] [id number] Articul/Sridhar 28mm Cementless Hip +1.5mm 12/14 Taper Head Femoral Latex Free - Sna - [id number] Implanted:Qty: 1 on 12/31/2020 by Luciano Burnett MD at [facility] Other - see comments Left: Hip [employer] 07/26/2025 [id number] / NA / [id number] Description:Implant Procedures Procedure Name Priority Date/Time Associated Diagnosis Comments EGFR Routine 12/20/2020 12:05 PM CDT Primary osteoarthritis of left hip from Last 3 Months or Most Recently Relevant to Health Maintenance Results * eGFR (12/20/2020 12:05 PM CDT) eGFR 85 mL/min/1.7 3 m2 [facility] Comment: Interpretive Data Reference Interval Normal [...] MD LAB BLOOD ORDERABLES Valerie l Result [facility] [address] [facility] [place] [address] from Last 3 Months or Most Recently Relevant to Health Maintenance Insurance [facility] MEDICARE ADVANTAGE [facility] Address: [address] [place] [address] [facility] MED[facility] Advance Directives For more information, please contact: [phone] * Full Code (Latest Code Status on File) Date Activated Date Inactivated Comments 12/31/2020 4:31 PM 01/02/2021 7:04 PM Care Teams Gear Hobber Relationship Specialty Start Date End Date Nhung Villalba MD [address] [place] [address] PCP - General Neurology 11/22/23
[2024-09-05 10:44] LABS: Hematocrit 35.9 % (37.0-47.0); Hemoglobin 11.5 g/dL (12.0-15.0); Immature Granulocyte Percent A 0.4 % (0-0.5); Lymphocytes Absolute Auto 1.24 K/mm3 (0.9-3.2); Mean Corpuscular HGB Conc 32.0 g/dl (32-36); Mean Corpuscular Hemoglobin 30.0 pg (26-34); Mean Corpuscular Volume 93.7 fl (80-100); Nucleated Red Blood Cells Absolute Auto 0.000 K/mm3 (0.0-0.012); Nucleated Red Blood Cells Perc 0.0 % (0.0-0.2); Platelet Count Result 192 k/mm3 (150-375); Red Blood Count 3.83 M/mm3 (4.2-5.4); White Blood Count 5.0 K/mm3 (4.5-10.0)
[2024-09-05 10:47] LABS: Blood Urea Nitrogen 18 mg/dL (8-26); Carbon Dioxide 25 mmol/L (22-30); Chloride 104 mmol/L (98-109); Estimated Glomerular Filt Rate 39; Glucose 89 mg/dL (70-105); Ionized Calcium (POC) 1.28 mmol/L (1.11-1.31); Potassium 3.5 mmol/L (3.5-4.9); Sodium 143 mmol/L (138-146)
[2024-09-05 12:21] LABS: Alanine Aminotransferase 24 U/L (6-35); Albumin Level 4.0 g/dL (3.5-5.1); Alkaline Phosphatase 86 U/L (38-126); Anion Gap 8 mmol/L (4-12); Aspartate Amino Transferase 46 U/L (14-36); Bilirubin,Total 0.4 mg/dL (0.2-1.3); Blood Urea Nitrogen 18 mg/dL (7-17); Calcium 9.6 mg/dL (8.4-10.2); Carbon Dioxide 27 mmol/L (22-30); Chloride 106 mmol/L (98-107); Estimated Glomerular Filt Rate 46; Glucose 88 mg/dL (65-110); Potassium 3.6 mmol/L (3.4-5.0); Sodium 141 mmol/L (137-145); Total Protein 7.1 g/dL (6.3-8.2)
== END 2024-09-05 10:33 | disposition home or self-care (01) ==
PROVIDERS: PCP Family Medicine; Visit Provider Internal Medicine Hematology & Oncology
DX: M85.89 Other specified disorders of bone density and structure, multiple sites (principal)
CPT/HCPCS: 36415; 80047; 80053; 85025

== ENCOUNTER 2024-12-05 10:20 | Outpatient (CLI) | payer MEDICARE, SELFPAY ==
--- NOTE | ~2024-12-05 | MM_ITS ---
EXAMINATION: MM diagnostic trever BI w deniz INDICATION: Asymptomatic, referred for screening mammogram. 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 COMPARISON: 11/21/2023 through 02/25/2020 TECHNIQUE: Digital Breast Tomosynthesis CC, MLO, and ML views were obtained of Both breasts with computer-aided detection to assist in interpretation of the study. FINDINGS: There are scattered areas of fibroglandular density. Expected Posttreatment changes in Both breasts are present. No new focal dominant mass, architectural distortion, or suspicious microcalcifications are identified. There are no features to suggest malignancy. IMPRESSION: Benign mammogram. No evidence of malignancy in the breast. BI-RADS 2, BENIGN Reviewed, dictated and finalized at location B.
== END 2024-12-05 10:21 | disposition home or self-care (01) ==
LOC: ANHFOHIMG 10:21
PROVIDERS: PCP Family Medicine; Visit Provider Internal Medicine Hematology & Oncology
DX: D05.10 Intraductal carcinoma in situ of unspecified breast (principal); N60.92 Unspecified benign mammary dysplasia of left breast; R92.0 Mammographic microcalcification found on diagnostic imaging of breast
CPT/HCPCS: 36415; 77062; 77066; 80048; 85025; G0279

== ENCOUNTER 2024-12-05 11:31 | Outpatient (CLI) | payer MEDICARE, SELFPAY ==
[2024-12-05 11:50] LABS: Hematocrit 37.7 % (37.0-47.0); Hemoglobin 12.1 g/dL (12.0-15.0); Immature Granulocyte Percent A 0.7 % (0-0.5); Lymphocytes Absolute Auto 0.72 K/mm3 (0.9-3.2); Mean Corpuscular HGB Conc 32.1 g/dl (32-36); Mean Corpuscular Hemoglobin 30.0 pg (26-34); Mean Corpuscular Volume 93.5 fl (80-100); Nucleated Red Blood Cells Absolute Auto 0.000 K/mm3 (0.0-0.012); Nucleated Red Blood Cells Perc 0.0 % (0.0-0.2); Platelet Count Result 206 k/mm3 (150-375); Red Blood Count 4.03 M/mm3 (4.2-5.4); White Blood Count 4.5 K/mm3 (4.5-10.0)
[2024-12-05 14:20] LABS: Anion Gap 6 mmol/L (4-12); Blood Urea Nitrogen 16 mg/dL (7-17); Calcium 9.9 mg/dL (8.4-10.2); Carbon Dioxide 26 mmol/L (22-30); Chloride 103 mmol/L (98-107); Estimated Glomerular Filt Rate 58; Glucose 97 mg/dL (65-110); Potassium 3.7 mmol/L (3.4-5.0); Sodium 135 mmol/L (137-145)
== END 2024-12-05 11:32 | disposition home or self-care (01) ==
LOC: ANHLAB 11:31
PROVIDERS: PCP Family Medicine; Visit Provider Internal Medicine Hematology & Oncology
DX: D05.10 Intraductal carcinoma in situ of unspecified breast (principal)
CPT/HCPCS: 36415; 80048; 85025

== ENCOUNTER 2025-02-22 07:33 | Emergency (ER) | payer MEDICARE, SELFPAY ==
--- NOTE | ~2025-02-22 | CT_ITS ---
CT abdomen pelvis w con Clinical History: LLQ pain . Comparison: None Technique: Axial images lung bases to symphysis pubis IV contrast information not listed in PACS Coronal, sagittal reformats CT images acquired with automatic exposure control for dose reduction DLP: 496 mGy-cm Findings: Lung bases: Clear. Visualized heart and pericardium: Unremarkable. Liver: Enlarged. Steatosis. Intrahepatic biliary ductal dilatation after cholecystectomy. Gallbladder: Removed. Spleen: Unremarkable. Pancreas: Mild ductal dilatation. Adrenal glands: Unremarkable. Kidneys: Right kidney- No hydronephrosis. No renal stones.. Large cyst. Left kidney- No hydronephrosis. No renal stones. Retroaortic renal vein. Distal esophagus/stomach: Gastric varices. Small bowel loops: Normal caliber and wall thickness. Colon: Diverticula. Focal sigmoid wall thickening and inflammation, no free air or abscess. Normal RLQ appendix. Nodes: No enlarged nodes. Peritoneum: No ascites. No free air. Urinary bladder: Unremarkable. Uterus: Intramural fibroid. Adnexa: No masses. Bones: No acute bony abnormality. Left hip arthroplasty. Soft tissues: Unremarkable. Aorta: No aneurysm or dissection. IVC: Unremarkable. Main portal vein/SMV/splenic vein: Patent. IMPRESSION: 1. Sigmoid diverticulitis. No complicating features. Reviewed, dictated and finalized at location [employer]. [employer]
--- OUTSIDE RECORDS SUMMARY | 2025-02-22 07:36 | XMS_ITS | Clinical Summary ---
Author Organization [facility] Address [address] [place] [address] Care Team Providers Care U.S. Revenue Officer Name Role Phone Levy Cline MD Primary Care Provider Allergies Active Allergy Reactions Criticality Noted Date [...] Encounters Date Type Department Care Team Description 12/18/2024 1:15 PM CDT Office Visit [facility] Oncology and Hematology - Yousif [address] [place] [phone] Octavio Wilkerson MD Ductal carcinoma in situ (DCIS) of breast, unspecified laterality (Primary Dx) 12/16/2024 External Device Data STL ABSTRACTION Provider, Abstract 12/08/2024 Orders Only [facility] Oncology and Hematology [address]ous[address] [place] [phone] Octavio Wilkerson MD from Last 3 Months Immunizations Immunization [...] Sign Reading Time Taken Comments Blood Pressure 134/72 12/18/2024 1:07 PM CDT Pulse 75 12/18/2024 1:07 PM CDT Temperature 36.1 C (96.9 F) 12/18/2024 1:07 PM CDT Respiratory Rate 16 12/18/2024 1:07 PM CDT Oxygen Saturation 94% 12/18/2024 1:07 PM CDT Inhaled Oxygen Concentration - - Weight 89 kg (196 lb 3.2 oz) 12/18/2024 1:07 PM CDT Height 154.9 cm (5' 1) 01/28/2024 1:32 PM TANNING WHEEL OPERATOR Body Mass Index 37.07 01/28/2024 1:32 PM TANNING WHEEL OPERATOR Plan of Treatment Upcoming Encounters Date Type Department Care Team (Late st Contact Info) Description 04/22/2025 2:45 PM TANNING WHEEL OPERATOR Office Visit [facility] Oncology and Hematology - Yousif [address] [facility] [address] [place] [address] Octavio Wilkerson MD [address] [facility] [address] [place] [address] Health Maintenance Due Date Last [...] 1-dose 75+ series) 2017 INFLUENZA VACCINE (#1) 2024 2, 10/29/2019, 12/19/2018, Additional history exists Procedures Procedure Name Priority Date/Time Associated Diagnosis Comments BASIC METABOLIC PANEL Routine 12/05/2024 3:09 PM CDT MAMMO DIAGNOSTIC BILATERAL W OR WO CAD Routine 12/05/2024 11:05 AM CDT from Last 3 Months Results * BASIC METABOLIC PANEL (12/05/2024 3:09 PM CDT) Blood Octavio Wilkerson MD CHEMISTRY ORDERABLES Final Resu lt * MAMMO DIAGNOSTIC BILATERAL W OR WO CAD (12/05/2024 11:05 AM CDT) Anatomical Region Laterality Modality Breast Bilateral Mammography Octavio Wilkerson MD MAMMO ORDERABLES Final Result from Last 3 Months Insurance RX [employer] RX Member Subscriber Plan / Payer (Ef fective 2021-Present) Name:Ping [place] Relation to Subscriber:Self Name:Ping [place] Subscriber ID:Not on file Payer ID:Not on file Group ID:[id number] Type:RX Medicare Part D Address: DARLENE BAZAN [employer] PPO MCR Care Teams U.S. Revenue Officer Relationship Specialty Start Date End Date Levy Cline MD [address] [facility] [address] [place] [address] PCP - General Family Practice 12/18/24
--- OUTSIDE RECORDS SUMMARY | 2025-02-22 07:36 | XMS_ITS | Clinical Summary ---
Author Organization [facility] Address [address] [place] [address] Care Team Providers Care Welding Machine Operator Arc Name Role Phone Nhung Villalba MD Primary Care Provider [phone] Allergies Active Allergy Reactions Criticality Noted Date [...] on file Legal Sex Female 6:37 AM FINGER BUFF SEWER Gender Identity Female 09/05/2020 5:52 PM CDT Sexual Orientation Straight 09/05/2020 5: 52 PM CDT Occupation Industry Job Start Date Job End Date retired Not on file Not on file Not on file Last Filed Vital Signs Vital Sign Reading Time Taken Comments Blood Pressure 141/57 01/02/2021 11:40 AM FINGER BUFF SEWER Pulse 79 01/02/2021 11:40 AM FINGER BUFF SEWER Temperature 36.8 C (98.2 F) 01/02/2021 11:40 AM FINGER BUFF SEWER Respiratory Rate 16 01/02/2021 11:40 AM FINGER BUFF SEWER Oxygen Saturation 97% 01/02/2021 11:40 AM FINGER BUFF SEWER Inhaled Oxygen Concentration - - Weight 93.2 [...] Assessment 01/02/2022 01/02/2021 Covid-19 Vaccine (3 - 2024-2 6 season) 2024 05/16/2020, 04/23/2020 Influenza Vaccine (#1) 2024 , 10/29/2019, 12/19/2018, Additional history exists Hepatitis B Screening Completed 12/07/2016, 017 Medical Devices Implanted Type Area Vending Stand Supervisor Device Identifier Shelf Expiration Date Model / Serial / Lot Depuy Orth[employer] [id number] Cup Acetabular Bi-Mentum Od51mm Femoral Proximal Press Fit - Sna - [id number] Implanted:Qty: 1 on 12/31/2020 by Luciano Burnett MD at [facility] Other - see comments Left: Hip [employer] [id number] 06/25/2024 [id number] / NA / Description:Implant pause pe rformed [employer] 101 Actis 105mm Collar Hip 5 Standard Offset Stem Femoral - Sna - [id number] Implanted:Qty: 1 on 12/31/2020 by Luciano Burnett MD at [facility] Other - see comments Left: Hip [employer] [id number] 10/26/2030 101 / NA / [id number] Description:Implant pause pe rformed [employer] [id number] Liner Acetabular Bi-Mentum Polyethylene Od51mm Id28mm Femoral Proximal - Sna - [id number] Implanted:Qty: 1 on 12/31/2020 by Luciano Burnett MD at [facility] Other - see comments Left: Hip [employer] [id number] 12/26/2024 [id number] / NA / [id number] Description:Implant pause pe rformed [employer]uy [employer] Inc [id number] Articul/Sridhar 28mm Cementless Hip +1.5mm 12/14 Taper Head Femoral Latex Free - Sna - [id number] Implanted:Qty: 1 on 12/31/2020 by Luciano Burnett MD at [facility] Other - see comments Left: Hip [employer] 07/26/2025 [id number] / NA / [id number] Description:Implant Procedures Procedure Name Priority Date/Time Associated Diagnosis Comments EGFR Routine 12/20/2020 12:05 PM CDT Primary osteoarthritis of left hip from Last 3 Months or Most Recently Relevant to Health Maintenance Results * eGFR (12/20/2020 12:05 PM CDT) eGFR 85 mL/min/1.7 3 m2 [facility] Comment: Interpretive Data Reference Interval Normal [...] MD LAB BLOOD ORDERABLES Valerie crocker Result [facility] [address] [facility] [place] [address] from Last 3 Months or Most Recently Relevant to Health Maintenance Insurance [employer] MEDICARE ADVANTAGE [facility] MEDICARE [facility] MEDICARE Address: [address] [place] [address] [facility] MEDICARE Advance Directives For more information, please contact: [phone] * Full Code (Latest Code Status on File) Date Activated Date Inactivated Comments 12/31/2020 4:31 PM 01/02/2021 7:04 PM Care Teams Welding Machine Operator Arc Relationship Specialty Start Date End Date Nhung Villalba MD [address] [place] [address] PCP - General Neurology 11/22/23
[2025-02-22 07:47] VITALS: BP 155/94; PULSE 74; RESP 16; TEMP 36.7; O2SAT 99
[2025-02-22 08:06] LABS: Hematocrit 36.8 % (37.0-47.0); Hemoglobin 12.1 g/dL (12.0-15.0); Immature Granulocyte Percent A 0.6 % (0-0.5); Lymphocytes Absolute Auto 0.83 K/mm3 (0.9-3.2); Mean Corpuscular HGB Conc 32.9 g/dl (32-36); Mean Corpuscular Hemoglobin 30.3 pg (26-34); Mean Corpuscular Volume 92.2 fl (80-100); Nucleated Red Blood Cells Absolute Auto 0.000 K/mm3 (0.0-0.012); Nucleated Red Blood Cells Perc 0.0 % (0.0-0.2); Platelet Count Result 238 k/mm3 (150-375); Red Blood Count 3.99 M/mm3 (4.2-5.4); White Blood Count 7.0 K/mm3 (4.5-10.0)
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
--- OUTSIDE RECORDS SUMMARY | 2025-02-22 08:12 | XMS_ITS | Clinical Summary ---
Author Organization [facility] Address [address] [place] [address] Care Team Providers Care Astronomy Professor Name Role Phone Nhung Villalba MD Primary Care Provider [phone] Allergies Active Allergy Reactions Criticality Noted Date [...] on file Legal Sex Female 6:37 AM STEWARD/STEWARDESS ROOM Gender Identity Female 09/05/2020 5:52 PM CDT Sexual Orientation Straight 09/05/2020 5: 52 PM CDT Occupation Industry Job Start Date Job End Date retired Not on file Not on file Not on file Last Filed Vital Signs Vital Sign Reading Time Taken Comments Blood Pressure 141/57 01/02/2021 11:40 AM STEWARD/STEWARDESS ROOM Pulse 79 01/02/2021 11:40 AM STEWARD/STEWARDESS ROOM Temperature 36.8 C (98.2 F) 01/02/2021 11:40 AM STEWARD/STEWARDESS ROOM Respiratory Rate 16 01/02/2021 11:40 AM STEWARD/STEWARDESS ROOM Oxygen Saturation 97% 01/02/2021 11:40 AM STEWARD/STEWARDESS ROOM Inhaled Oxygen Concentration - - Weight 93.2 [...] 12/07/2016, 017 Medical Devices Implanted Type Area Quality Lead Device Identifier Shelf Expiration Date Model / Serial / Lot Depuy [employer] [id number] Cup Acetabular Bi-Mentum Od51mm Femoral Proximal Press Fit - Sna - [id number] Implanted:Qty: 1 on 12/31/2020 by Luciano Burnett MD at [facility] Other - see comments Left: Hip [employer] [id number] 06/25/2024 [id number] / NA / Description:Implant pause pe rformed [employer] 101 Actis 105mm Collar Hip 5 Standard Offset Stem Femoral - Sna - [id number] Implanted:Qty: 1 on 12/31/2020 by Luciano Burnett MD at [facility] Other - see comments Left: Hip [employer] [id number] 10/26/2030 101 / NA / [id number] Description:Implant pause pe rformed [employer]uy [employer] [id number] Liner Acetabular Bi-Mentum Polyethylene Od51mm Id28mm Femoral Proximal - Sna - [id number] Implanted:Qty: 1 on 12/31/2020 by Luciano Burnett MD at [facility] Other - see comments Left: Hip [employer] [id number] 12/26/2024 [id number] / NA / [id number] Description:Implant pause pe rformed [employer] Inc [id number] Articul/Sridhar 28mm Cementless Hip +1.5mm 12/14 Taper Head Femoral Latex Free - Sna - [id number] Implanted:Qty: 1 on 12/31/2020 by Luciano Burnett MD at [facility] Other - see comments Left: Hip [employer] 07/26/2025 [id number] / NA / [id number] Description:Implant Procedures Procedure Name Priority Date/Time Associated Diagnosis Comments EGFR Routine 12/20/2020 12:05 PM CDT Primary osteoarthritis of left hip from Last 3 Months or Most Recently Relevant to Health Maintenance Results * eGFR (12/20/2020 12:05 PM CDT) eGFR 85 mL/min/1.7 3 m2 [facility] Comment: Interpretive Data Reference Interval [...] BLOOD ORDERABLES Valerie crocker Result [facility] [address] [facility] [place] [address] from Last 3 Months or Most Recently Relevant to Health Maintenance Insurance UHC MEDICARE ADVANTAGE [facility] MEDICARE [facility] MEDICARE Address: [address] [place] [address] [facility] MEDICARE Advance Directives For more information, please contact: [phone] * Full Code (Latest Code Status on File) Date Activated Date Inactivated Comments 12/31/2020 4:31 PM 01/02/2021 7:04 PM Care Teams Astronomy Professor Relationship Specialty Start Date End Date Nhung Villalba MD [address] [place] [address] PCP - General Neurology 11/22/23
--- OUTSIDE RECORDS SUMMARY | 2025-02-22 08:12 | XMS_ITS | Encounter Summary ---
Author Organization [facility] Address [address] [place] [address] Care Team Providers Care Resist Coater Developer Name Role Phone Mahi Gomez MD Primary Care Provider [phone] Nhung Villalba MD Primary Care Provider Reason for Referral * Diagnostic Imaging (Routine) - Closed Specialty Diagnoses / Procedures Referred By Contac t Referred To Contact Diagnoses Research subject Procedures NM Radiopharmaceutical Distribution SPECT (1 area, 1 day) Nhung Villalba MD [address] [place] [address] Phone: tel: fax: [address] [address] Referral ID Status Reason Start Date Expiration Date Visits Re quested Visits Authorized [id number] Closed 10/12/2023 11/10/2024 3 3 Encounter Details Date Type Department Care Team (Late st Contact Info) Description 10/12/2023 Orders Only Neurology Nhung Villalba MD [address] [place], [place] [id number] Research subject (Primary Dx) Social History Tobacco [...] on file Legal Sex Female 6:37 AM DYE MIXER Gender Identity Female 09/05/2020 5:52 PM CDT [...] research purposes only. If needed, contact the principal librarian, Nhung Villalba MD, for additional details. Electronically [...] research purposes only. If needed, contact the principal librarian, Nhung Villalba MD, for additional details. Electronically signed by: Dk Weston M.D. us Nhung Villalba MD IMG NM PROCEDURES Final Result documented in this encounter Visit Diagnoses Diagnosis Research subject- Primary Research subject documented in this encounter Care Teams Resist Coater Developer Relationship Specialty Start Date End Date Mahi Gomez MD [facility] [place] [address] PCP - General 11/24/10 11/21/23 Nhung Villalba MD [address] [facility] [address] [place] [address] PCP - General Neurology 11/22/23 documented as of this encounter
[2025-02-22 08:15] LABS: Alanine Aminotransferase 43 U/L (6-35); Albumin Level 4.1 g/dL (3.5-5.1); Alkaline Phosphatase 151 U/L (38-126); Anion Gap 8 mmol/L (4-12); Aspartate Amino Transferase 36 U/L (14-36); Bilirubin,Total 0.9 mg/dL (0.2-1.3); Blood Urea Nitrogen 20 mg/dL (7-17); Calcium 9.7 mg/dL (8.4-10.2); Carbon Dioxide 25 mmol/L (22-30); Chloride 104 mmol/L (98-107); Estimated CRCL calculation 35 ml/min; Estimated Glomerular Filt Rate 48; Glucose 110 mg/dL (65-110); Lipase 69 U/L (23-300); Potassium 3.4 mmol/L (3.4-5.0); Sodium 137 mmol/L (137-145); Total Protein 7.5 g/dL (6.3-8.2)
[2025-02-22 08:48] VITALS: BP 142/63; PULSE 75; RESP 16; O2SAT 97
--- NOTE | 2025-02-22 09:01 | ED.GENADULT ---
HPI - General Adult General Chief complaint: Abdominal Pain Stated complaint: abd pain for week, diarrhea, weak Time Seen by Provider: 02/22/25 07:37 History of Present Illness HPI narrative: 85-year-old female presenting to the emergency department for evaluation for left lower quadrant abdominal pain associated nausea. Patient reports symptoms have been worsening over the last 2 days. Patient has no prior history of diverticulitis. Patient does have history of hypertension, chronic kidney disease. Patient has history of cholecystectomy and thyroidectomy. Related Data Home Medications ?Medication ?Instructions ?Recorded ?Confirmed ?Last Taken ?Type multivitamin (Daily Multi-Vitamin 1 tablet PO DAILY 01/15/19 01/16/25 04/29/24 History tablet) omega 3-nyf-bdv-fish oil 1,000 mg 1 cap PO DAILY 02/13/19 01/16/25 04/29/24 History (120 mg-180 mg) capsule (Fish Oil) bimatoprost 0.01 % eye drops 1 drp ophthalmic (eye) HS 12/24/19 01/16/25 04/29/24 History (Yoselin) ascorbic acid (vitamin C) 500 mg 500 mg PO DAILY 06/23/21 01/16/25 04/29/24 History capsule mecobalamin (vitamin B12) 500 mcg 1,000 mcg PO DAILY 08/28/22 01/16/25 04/29/24 History chewable tablet anastrozole 1 mg tablet 1 mg PO DAILY 11/05/24 01/16/25 Unknown History Allergies Allergy/AdvReac Type Severity Reaction Status Date / Time amoxicillin Allergy Unknown VISUAL Verified 02/22/25 07:37 PROBLEMS Mushroom Allergy Mild Nausea and Uncoded 01/16/25 09:21 Vomiting Review of Systems Review of Systems: All systems reviewed & are unremarkable except as noted in HPI and below PMFSH Past Medical History Medical History Lack of appetite [place] (hard of hearing) Hemoptysis Recurrent epistaxis Skull fracture Morbid (severe) obesity due to excess calories Benign essential HTN Coughing blood Screening for diabetes mellitus (DM) Sleep disturbance SINDHU (obstructive sleep apnea) Vaginal atrophy Screening for cervical cancer Nocturnal leg movements Nightmares Essential hypertension Chronic otitis externa of both ears Osteoarthritis of left hip BMI 38.0-38.9,adult Abnormal finding on ultrasound Obesity SINDHU (obstructive sleep apnea) Clear vaginal discharge High cholesterol Glaucoma Hypertension Thyroid disease Surgical History Surgical History H/O lumpectomy S/P partial thyroidectomy History of hip surgery History of cholecystectomy H/O knee surgery left tka 2010, Dr. Gallegos Right tka, 2007, Dr. Gallegos S/P dilation and curettage History of tubal ligation Family History Family History Sibling Hypertension Family history of diabetes mellitus in first degree relative Diabetes mellitus Other Cerebrovascular accident Social History Social History Social History: Single Smoking packs per day: 0 Smoking cigarettes per day: 0.0 Years smoked: 2 Smoking pack-years: 0.00 Smoking status: Former smoker Tobacco type: cigarettes Second hand tobacco smoke exposure: No Alcohol intake: never Substance use: never Substance use type: does not use Lack of Transportation: No Lack of Food: Never True Current Housing: I Have Housing Concerned About Future Housing: No Difficulty Paying Gas/Electric Bills: No Difficulty Paying for Meds: No Currently Unemployed: YES Education: Don't Know Difficulty w/ Childcare or Family Care: No Living arrangements: alone Occupation/Education: retired Gender identity (if verbalized by the patient): Female Sexual Orientation (if Verbalized by the Patient): Straight or Heterosexual Spiritual care concerns: No Agree to blood products: Yes Exam Narrative: APPEARANCE: Well appearing, no pain, no distress, well-nourished. HEAD: normocephalic, atraumatic. EYES: PERRLA/EOMI, conjunctivae clear. NOSE: Normal no drainage EARS:TMS clear with good light reflex. THROAT: Pharynx clear, no exudate. NECK: Supple. No adenopathy, no masses. RESPIRATORY: Airway patent, respirations nonlabored. Clear to auscultation bilaterally, no rales, rhonchi, wheezing. CARDIOVASCULAR: Regular rate and rhythm without murmurs rubs or gallops. ABDOMINAL: Left lower quadrant tenderness to palpation MUSCULOSKELETAL: Moves all extremities. Strength/ROM intact, No edema, No calf tenderness. NEURO: Alert. Cranial nerves II through XII intact. Good gait. Good coordination SKIN: Warm, dry. Normal Color Course Vital Signs Vital signs: Vital Signs Temperature 98.0 F 12/28/25 07:47 Pulse Rate 74 02/22/25 07:47 Respiratory Rate 16 02/22/25 07:47 Blood Pressure 155/94 H 02/22/25 07:47 Pulse Oximetry 99 02/22/25 07:47 Oxygen Delivery Room Air 02/22/25 07:47 Temperature 98.0 F 02/22/25 07:47 Pulse Rate 92 02/22/25 10:33 Respiratory Rate 16 02/22/25 10:33 Blood Pressure 141/62 H 02/22/25 10:33 Pulse Oximetry 97 02/22/25 10:33 Oxygen Delivery Room Air 02/22/25 07:47 [facility] Narrative Medical decision making narrative: 85-year-old female presents emergency department for evaluation for left lower quadrant pain. Patient denies any specific urinary symptoms. Patient is currently afebrile with no leukocytosis and a stable hemoglobin of 12.1. Patient has no significant acute abnormalities on her CMP. CT scan does show evidence of diverticulitis. Patient has underlying allergy to amoxicillin patient was started on Cipro and Flagyl. Patient was updated the results of the workup. Patient was comfortable the plan for discharge and close follow-up. Differential Diagnosis Differential Diagnosis: Colitis, diverticulitis, perforation, abscess Lab Data [facility] Lab Attestation statement: I personally reviewed the patient's lab results. 02/22/25 08:00 02/22/25 08:00 Labs: Lab Results 02/22/25 02/22/25 Range/Units 08:00 10:06 WBC 7.0 (4.5-10.0) K/mm3 RBC 3.99 L (4.2-5.4) M/mm3 Hgb 12.1 (12.0-15.0) g/dL Hct 36.8 L (37.0-47.0) % MCV 92.2 (80-100) fl MCH 30.3 (26-34) pg MCHC 32.9 (32-36) g/dl RDW 13.5 (11.5-14.5) % Plt Count 238 (150-375) k/mm3 MPV 9.8 (7.4-10.4) fl Immature Gran % (Auto) 0.6 H (0-0.5) % Neut % (Auto) 75.9 H (45.5-73.1) % Lymph % (Auto) 11.9 L (18.3-44.2) % [place] % (Auto) 9.3 H (2.6-8.5) % Eos % (Auto) 1.9 (0-4.4) % Baso % (Auto) 0.4 (0.2-1.2) % Lymph # (Auto) 0.83 L (0.9-3.2) K/mm3 [place] # (Auto) 0.7 H (0.1-0.6) K/mm3 Eos # (Auto) 0.1 (0-0.3) K/mm3 Baso # (Auto) 0.0 (0.0-0.1) K/mm3 Abs Immat Gran (auto) 0.04 H (0.00-0.031) K/mm3 Absolute Neuts (auto) 5.3 (1.3-6.7) K/mm3 Absolute Nucleated RBC 0.000 (0.0-0.012) K/mm3 Nucleated RBC % 0.0 (0.0-0.2) % Sodium 137 (137-145) mmol/L Potassium 3.4 (3.4-5.0) mmol/L Chloride 104 (98-107) mmol/L Carbon Dioxide 25 (22-30) mmol/L Anion Gap 8 (4-12) mmol/L BUN 20 H (7-17) mg/dL Creatinine 1.09 H (0.7-1.0) mg/dL Estim Creat Clear Calc 35 ml/min Estimated GFR 48 L (59 - ) Glucose 110 (65-110) mg/dL Calcium 9.7 (8.4-10.2) mg/dL Total Bilirubin 0.9 (0.2-1.3) mg/dL AST 36 (14-36) U/L ALT 43 H (6-35) U/L Alkaline Phosphatase 151 H (38-126) U/L Total Protein 7.5 (6.3-8.2) g/dL Albumin 4.1 (3.5-5.1) g/dL Lipase 69 (23-300) U/L Urine Color Yellow (Yellow) Urine Appearance Clear (Clear) Urine pH 7.5 (5.0-9.0) Ur Specific [place] 1.035 (1.001-1.035) Urine Protein Negative (Negative) mg/dL Urine Glucose (UA) Negative (Negative) mg/dL Urine Ketones Negative (Negative) mg/dL Ur Blood (Man) Negative (Negative) Urine Nitrate Negative (Negative) Urine Bilirubin Negative (Negative) Urine Urobilinogen 1.0 (<2.0) mg/dL Leukocyte Esterase Rfl Negative (Negative) [place] Imaging Data Radiologist's impression: ITS Impressions Abdomen/Pelvis CT 02/22/25 09:34 IMPRESSION: 1. Sigmoid diverticulitis. No complicating features. Discharge Plan Discharge Clinical Impression: Diverticulitis Patient Disposition: Home Condition: Stable Instructions: Antibiotic Form, Diverticulitis (ED) Additional Instructions: Antibiotic as directed until completed. Clear liquid diet for the next 1-3 days. Advance to a bland diet as tolerated. Have close follow-up with your primary care physician. Have close follow-up with GI. If you have any worsening symptoms then please call or return to the emergency department. Patient Language: Uzbek Prescriptions: New metronidazole 500 mg tablet 500 mg PO Q12H 7 Days Qty: 14 0RF ciprofloxacin HCl [Cipro] 500 mg tablet 500 mg PO Q12H 7 Days Qty: 14 0RF No Action ascorbic acid (vitamin C) 500 mg capsule 500 mg PO DAILY [place] 0.01 % drops 1 drp ophthalmic (eye) HS mecobalamin (vitamin B12) 500 mcg tablet,chewable 1,000 mcg PO DAILY multivitamin [Daily Multi-Vitamin] Tablet 1 tablet PO DAILY anastrozole 1 mg tablet 1 mg PO DAILY omega 3-dit-frv-fish oil [Fish Oil] 1,000 mg (120 mg-180 mg) Capsule 1 cap PO DAILY amlodipine 5 mg tablet See Rx Instructions .ROUTE .COMPLEX Qty: 90 1RF Dose Instruction: TAKE 1 TABLET BY MOUTH EVERY EVENING Rx Instructions: TAKE 1 TABLET BY MOUTH EVERY EVENING triamterene-hydrochlorothiazid 37.5-25 mg tablet See Rx Instructions .ROUTE .COMPLEX Qty: 90 1RF Dose Instruction: TAKE 1 TABLET BY MOUTH EVERY MORNING Rx Instructions: TAKE 1 TABLET BY MOUTH EVERY MORNING Follow-up/Referrals: Levy Cline MD [Primary Care Provider, Family Practice] Wilman Mayen MD [Physician, Gastroenterology]
[2025-02-22] MEDS: CIPROFLOXACIN 500 MG TAB PO (10:07)
[2025-02-22 10:13] LABS: Add Urine Microscopic? NO; Appearance Urine Clear (Clear); Glucose Urine UA Negative (Negative); Leukocyte Esterase Ur Negative LEU/UL (Negative); Nitrate Urine Negative (Negative); Specific Grav Ur 1.035 (1.001-1.035)
[2025-02-22 10:33] VITALS: BP 141/62; PULSE 92; RESP 16; O2SAT 97
== END 2025-02-22 10:35 | disposition home or self-care (01) ==
PROVIDERS: Emergency Provider Emergency Medicine; PCP Family Medicine
DX: K57.32 Diverticulitis of large intestine without perforation or abscess without bleeding (principal); N18.9 Chronic kidney disease, unspecified; I12.9 Hypertensive chronic kidney disease with stage 1 through stage 4 chronic kidney disease, or unspecified chronic kidney disease; G47.33 Obstructive sleep apnea (adult) (pediatric); H40.9 Unspecified glaucoma; Z87.891 Personal history of nicotine dependence
CPT/HCPCS: 36415; 74177; 80053; 81003; 83690; 85025; 99284; A9270; Q9967